=== PATIENT | male | born 1965 | race Caucasian/White ===

== ENCOUNTER 2017-03-09 11:01 | Emergency (ER) | payer OTHER ==
[~2017-03-09] VITALS: Ht 165.1 cm; Wt 68.0 kg
[~2017-03-09 11:01] MED LIST: 'PARAFON FORTE500 M1 PO; CYCLOBENZAPRINE5 MG PO; HYDROCODONE BIT1 T11 PO; KEFLEX500 MG PO; MOTRIN800 MG PO; NAPROSYN500 MG PO; NKHM PO; PERCOCET 325 MG1 TA2 PO; TRAMADOL HCL50 MG PO; [UNRECOGNIZED DRUG - REMARK]
[2017-03-09 11:42] VITALS: BP 151/100
[2017-03-09 12:01] LABS: BASO # 0.1 10*3/uL (0.0-0.1); BASO % 0.7 % (0.0-1.0); EOS # 0.2 10*3/uL (0.0-0.4); EOS % 2.3 % (1.0-4.0); HEMATOCRIT 44.9 % (42.0-52.0); HEMOGLOBIN 15.7 g/dl (14.0-18.0); IG # 0.1 10*3/uL (0.0-0.1); LYMPH # 1.8 10*3/uL (1.3-4.4); LYMPH % 19.9 % (27.0-41.0); MEAN CELL VOLUME 86.5 fl (80.0-94.0); MEAN CORPUSCULAR HGB 30.3 pg (27.0-31.0); MEAN PLATELET VOLUME 10.3 fl (9.6-12.3); MONO # 0.7 10*3/uL (0.1-1.0); MONO % 7.4 % (3.0-9.0); NEUT # 6.1 10*3/uL (2.3-7.9); NEUT % 69.1 % (47.0-73.0); PLATELET COUNT AUTOMATED 246 10*3/uL (130-400); RED BLOOD COUNT 5.19 10*6/uL (4.50-5.90); RED CELL DISTRI WIDTH 12.6 % (0-14.5); WHITE BLOOD COUNT 8.8 10*3/uL (4.8-10.8)
[2017-03-09 12:15] LABS: ALBUMIN 3.9 gm/dl (3.1-4.5); ALKALINE PHOSPHATASE 83 U/L (45-117); BILIRUBIN, TOTAL 0.4 mg/dl (0.2-1.0); BUN 14 mg/dl (7-24); CARBON DIOXIDE 28 mmol/L (21-32); CHLORIDE 104 mmol/L (98-107); EST GLOM FILT AFRICAN AMERICAN > 60 ml/min; GLUCOSE 98 mg/dL (65-99); POTASSIUM 4.6 mmol/L (3.5-5.1); SGOT/AST 17 IU/L (3-35); SGPT/ALT 30 U/L (12-78); SODIUM 142 mmol/L (136-145); TOTAL PROTEIN 7.9 gm/dL (6.4-8.2)
[2017-03-09 12:32] LABS: BILIRUBIN NEGATIVE (NEGATIVE); BLOOD NEGATIVE (NEGATIVE); CLARITY CLEAR (CLEAR); COLOR YELLOW (YELLOW); GLUCOSE NEGATIVE (NEGATIVE); KETONE NEGATIVE (NEGATIVE); LEUKO ESTERASE NEGATIVE (NEGATIVE); NITRITE NEGATIVE (NEGATIVE); PROTEIN NEGATIVE (NEGATIVE); UROBILINOGEN 0.2 E.U./dl (0.2-1.0)
[2017-03-09 12:43] LABS: MUCOUS TRACE; URINE REFLEX COMMENT NO (NO)
[2017-03-09] MEDS ORDERED: PEPCID20 MG PO (12:56)
== END 2017-03-09 13:11 | disposition home or self-care (01) ==
LOC: ED 11:01
PROVIDERS: Emergency Medicine
DX: K62.5 Hemorrhage of anus and rectum (principal); Z88.6 Allergy status to analgesic agent

== ENCOUNTER → 2017-03-15 | Outpatient (CLI) | payer OTHER ==
[~2017-03-15] MED LIST changes: +PEPCID20 MG PO
== END | disposition home or self-care (01) ==
LOC: RESCLI 02:36
DX: I10 Essential (primary) hypertension (principal); K62.5 Hemorrhage of anus and rectum; E55.9 Vitamin D deficiency, unspecified; F41.8 Other specified anxiety disorders; K21.9 Gastro-esophageal reflux disease without esophagitis; R10.13 Epigastric pain; F12.10 Cannabis abuse, uncomplicated

== ENCOUNTER 2017-04-06 11:07 | Emergency (ER) | payer OTHER ==
[~2017-04-06] VITALS: Ht 165.1 cm; Wt 68.0 kg
[2017-04-06 11:22] VITALS: BP 127/90
[2017-04-06] MEDS ORDERED: PEPCID20 MG PO (11:43)
[2017-04-06] MEDS ORDERED: PROTONIX40 MG PO (11:43)
== END 2017-04-06 12:23 | disposition home or self-care (01) ==
LOC: ED 11:07
DX: K21.9 Gastro-esophageal reflux disease without esophagitis (principal); K62.5 Hemorrhage of anus and rectum; R51 Headache; Z88.6 Allergy status to analgesic agent

== ENCOUNTER 2017-04-06 15:13 | Emergency (ER) | payer OTHER ==
[~2017-04-06] VITALS: Ht 165.1 cm; Wt 68.0 kg
--- NOTE | ~2017-04-06 | EKG ---
[place], [place] ELECTROCARDIOGRAM REPORT NAME: LYNNE ALVAREZ UNIT #: [id number] ROOM: DOCTOR: JEREMIAS MACIAS MD BIRTHDATE: [birth year] DOS: 04/06/2017 TIME: 1552 hours FINDINGS: 1. Normal sinus rhythm at 74 beats per minute. 2. The tracing is normal. 3. No previous tracing is available for comparison. JEREMIAS MACIAS MD CM:EKGRPT:ELECTROCARDIOGRAM REPORT [id number] JEREMIAS MACIAS MD
[~2017-04-06 15:13] MED LIST changes: +PROTONIX40 MG PO
[2017-04-06 16:07] LABS: BASO # 0.1 10*3/uL (0.0-0.1); BASO % 0.5 % (0.0-1.0); EOS # 0.1 10*3/uL (0.0-0.4); EOS % 0.9 % (1.0-4.0); HEMATOCRIT 40.3 % (42.0-52.0); HEMOGLOBIN 14.2 g/dl (14.0-18.0); LYMPH # 1.5 10*3/uL (1.3-4.4); LYMPH % 16.4 % (27.0-41.0); MEAN CELL VOLUME 84.8 fl (80.0-94.0); MEAN CORPUSCULAR HGB 29.9 pg (27.0-31.0); MEAN CORPUSCULAR HGB CONC 35.2 g/dl (33.0-37.0); MEAN PLATELET VOLUME 10.1 fl (9.6-12.3); MONO # 0.5 10*3/uL (0.1-1.0); MONO % 5.4 % (3.0-9.0); NEUT # 7.2 10*3/uL (2.3-7.9); NEUT % 76.5 % (47.0-73.0); PLATELET COUNT AUTOMATED 278 10*3/uL (130-400); RED BLOOD COUNT 4.75 10*6/uL (4.50-5.90); RED CELL DISTRI WIDTH 12.2 % (0-14.5); WHITE BLOOD COUNT 9.4 10*3/uL (4.8-10.8)
[2017-04-06 16:15] LABS: PROTHROMBIN TIME 10.5 SECONDS (9.0-12.4)
[2017-04-06 16:25] LABS: ALBUMIN 3.8 gm/dl (3.1-4.5); ALKALINE PHOSPHATASE 81 U/L (45-117); BILIRUBIN, TOTAL 0.6 mg/dl (0.2-1.0); BUN 9 mg/dl (7-24); CARBON DIOXIDE 26 mmol/L (21-32); CHLORIDE 105 mmol/L (98-107); CKMB 1.3 ng/ml (0.5-3.6); CPK 81 U/L (39-308); EST GLOM FILT AFRICAN AMERICAN > 60 ml/min; GLUCOSE 128 mg/dL (65-99); MAGNESIUM 1.9 mg/dL (1.5-2.1); POTASSIUM 3.9 mmol/L (3.5-5.1); SGOT/AST 17 IU/L (3-35); SGPT/ALT 26 U/L (12-78); SODIUM 140 mmol/L (136-145); TOTAL PROTEIN 7.5 gm/dL (6.4-8.2)
[2017-04-06 16:27] LABS: C-REACTIVE PROTEIN < 0.29 MG/DL (0-0.3); TROPONIN I < 0.015 ng/ml (<0.045)
[2017-04-06 18:04] LABS: LA>2 REFLEX 2 HR DRAW NOW
[2017-04-06 18:58] LABS: BILIRUBIN NEGATIVE (NEGATIVE); BLOOD NEGATIVE (NEGATIVE); CLARITY SL CLOUDY (CLEAR); COLOR YELLOW (YELLOW); GLUCOSE NEGATIVE (NEGATIVE); KETONE NEGATIVE (NEGATIVE); LEUKO ESTERASE NEGATIVE (NEGATIVE); NITRITE NEGATIVE (NEGATIVE); PROTEIN TRACE (NEGATIVE); SPECIFIC GRAVITY 1.025 (1.005-1.030); UROBILINOGEN 0.2 E.U./dl (0.2-1.0)
[2017-04-06 19:04] LABS: BACTERIA 1+; EPITHELIAL CELLS 0-2; RBC 0-2 rbc/hpf (0-2); URINE REFLEX COMMENT NO (NO)
[2017-04-06 19:05] LABS: URINE AMPHETAMINES < 1000 (1000ng/ml); URINE BARBITURATES > 200 (200ng/ml); URINE COCAINE < 300 (300ng/ml)
[2017-04-06 19:11] VITALS: BP 136/82
== END 2017-04-06 23:46 | disposition home health service (06) ==
LOC: ED 15:13
PROVIDERS: Emergency Medicine
DX: F32.9 Major depressive disorder, single episode, unspecified (principal); R45.851 Suicidal ideations; F41.9 Anxiety disorder, unspecified; K21.9 Gastro-esophageal reflux disease without esophagitis; Z88.6 Allergy status to analgesic agent

== ENCOUNTER 2017-04-13 19:26 | Emergency (ER) | payer OTHER ==
[~2017-04-13] VITALS: Ht 160 cm; Wt 68.0 kg
[2017-04-13 19:33] VITALS: BP 126/74
== END 2017-04-13 20:31 | disposition home or self-care (01) ==
LOC: ED 19:26
DX: Z00.00 Encounter for general adult medical examination without abnormal findings (principal); K21.9 Gastro-esophageal reflux disease without esophagitis; Z88.6 Allergy status to analgesic agent; F41.9 Anxiety disorder, unspecified; F32.9 Major depressive disorder, single episode, unspecified

== ENCOUNTER 2017-12-19 18:34 | Inpatient (IN) | payer OTHER ==
[~2017-12-19] VITALS: Ht 160 cm; Wt 70.9 kg
--- NOTE | ~2017-12-19 | CON ---
[place], [place] REPORT OF CONSULTATION NAME: LYNNE ALVAREZ UNIT #: [id number] ROOM: 503 DOCTOR: NATASHA WARREN ED.D) BIRTHDATE: [birth year] DOS: 12/20/2017 HISTORY OF PRESENT ILLNESS: The patient is a 52-year-old male referred by the hospitalist for depression. At the present time, he is on the 5th floor at [facility]. He is single and has no children. His parents are both and he has 4 sisters and 1 brother. One sister is . He is currently applying for disability due to multiple head trauma and has social security hearing on 02/08/2018. PAST MEDICAL HISTORY: Presently, he has no family physician, but his medical history is pertinent for depression, anxiety, multiple concussions, hypertension, rectal bleeding, vitamin D deficiency and a history of suicidal ideation. MEDICATIONS: Include Pepcid, Protonix, Lovenox, Zofran and Restoril. SOCIAL HISTORY: He does not drink any alcoholic beverages or use tobacco related products. MENTAL STATUS EXAMINATION: This patient was awake, alert and oriented in all three spheres. He adamantly denies any suicidal ideation or plan. He states he does get depressed sometimes, but never thinks about hurting himself. He states he has a fairly good social support system with his friends. He has followed with Dr. Mcdermott in the past, but does not want any medications due to his multiple head traumas In my opinion, this patient would not benefit from any type of medication since he refuses to take any medication. I did give him my card and encouraged him to follow up with me or another mental health provider here in the area if he felt the need. He states he does not really think he needs counseling. DIAGNOSIS: Pervasive depressive disorder. RECOMMENDATIONS: 1. In my opinion, if this patient does report increasing depression, he should seek counseling on an outpatient basis. 2. The patient refuses medications. Thank you very much for this consult. [place], [place] REPORT OF CONSULTATION NAME: LYNNE ALVAREZ UNIT #: [id number] ROOM: 503 DOCTOR: NATASHA WARREN ED.D) BIRTHDATE: [birth year] NATASHA WARREN ED.D CM:CONSTR:REPORT OF CONSULTATION 1243 12/20/17 1343 interface
--- NOTE | ~2017-12-19 | O ---
[place], [place] OPERATIVE NOTE [id number] UNIT #: [id number] ROOM: 503 DOCTOR: JOYCELYN ALVES MD BIRTHDATE: [birth year] DOS: 12/20/2017 HISTORY OF PRESENT ILLNESS: A 52-year-old patient who presented with aggressive nausea, vomiting. Today nausea and vomiting has subsided on PPI and antiemetics; however, yesterday he has been vomiting relentlessly to a point he says he passed out nearly. PROCEDURE: He is a consumer of a pot of coffee at least per day. PAST MEDICAL HISTORY: Associated with depression, anxiety, gastroesophageal reflux, hypertension, old history of rectal bleeding. PAST SURGICAL HISTORY: Unremarkable. SOCIAL HISTORY: Cannabis user, nonalcohol, non-nicotine consumer. FAMILY HISTORY: Noncontributory. ALLERGIES: No known medication. MEDICATIONS: At home includes famotidine 20 mg b.i.d. and on no PPI. PROCEDURE: Today's procedure part of investigation is panendoscopy plus biopsy plus photographic series. PREMEDICATIONS: Versed and propofol. SCOPE: Olympus forward-viewing gastroscope Q10 video. REPORT: After putting the patient in left lateral position and application of lubricant to the scope, the scope was introduced. Thereafter, under direct visualization, advanced through the length of esophagus without difficulty. Lower third of the esophagus is occupied with linear ulcerations that are wide about 0.[address]ends all the way to esophagogastric junction. Gastric pouch was entered. Bile reflux gastritis was noticed. Duodenum was entered. Multiple small ulcerations in addition to duodenitis was noticed. Scope was after photographic series, the withdrawn to the antrum. Antral biopsy obtained and the patient extubated to the distal esophagus again confirmation of a 2 cm hiatal hernia was undertaken, photographed. The patient extubated, tolerated procedure well. IMPRESSION: Distal esophageal multiple ulcerations secondary to reflux, hiatal hernia, gastritis, duodenitis, multiple small antral ulcer, multiple small duodenal ulcers. PLAN AND DISCUSSION: Protonix 40 mg daily, Pepcid alone is not going to suffice management of this gentleman. Gaviscon Extra Strength 1 at bedtime 15 minutes before going to bed either chew or sucking on the tablet. This gentleman requires antireflux measures with elevation of the head of the bed 6 inch all time, abstaining from drinking a pot of coffee per day, which is going to [place], [place] OPERATIVE NOTE NAME: LYNNE ALVAREZ UNIT #: [id number] ROOM: [facility] DOCTOR: LONG RAMIREZ,JOYCELYN BIRTHDATE: [birth year] further stimulation of his acidic environment of the stomach He needs to abstain eating 4-5 hours before retiring, this includes solid food. He perhaps would benefit from a prior prokinetic. We are going to try to give him 5 mg of metoclopramide here 1 hour a.c. dinner to see if he can tolerate. We are going to label that with looking for extrapyramidal dyskinetic affect and follow up as outpatient. If H. pylori results come back positive, we are going to render therapy. JOYCELYN ALVES MD CM:OPRECORD:OPERATIVE NOTE 56 34 JOYCELYN ALVES MD 12/20/171934 interface
[2017-12-19 18:39] VITALS: BP 162/109
[2017-12-19 19:35] VITALS: BP 153/84
[2017-12-19 19:38] LABS: BASO # 0.1 10*3/uL (0.0-0.1); BASO % 0.5 % (0.0-1.0); EOS # 0.2 10*3/uL (0.0-0.4); EOS % 1.9 % (1.0-4.0); HEMATOCRIT 44.1 % (42.0-52.0); HEMOGLOBIN 15.4 g/dl (14.0-18.0); LYMPH # 1.8 10*3/uL (1.3-4.4); LYMPH % 18.1 % (27.0-41.0); MEAN CELL VOLUME 86.3 fl (80.0-94.0); MEAN CORPUSCULAR HGB 30.1 pg (27.0-31.0); MEAN CORPUSCULAR HGB CONC 34.9 g/dl (33.0-37.0); MEAN PLATELET VOLUME 10.6 fl (9.6-12.3); MONO # 0.9 10*3/uL (0.1-1.0); MONO % 8.6 % (3.0-9.0); NEUT % 70.6 % (47.0-73.0); PLATELET COUNT AUTOMATED 293 10*3/uL (130-400); RED BLOOD COUNT 5.11 10*6/uL (4.50-5.90); RED CELL DISTRI WIDTH 12.5 % (0-14.5); WHITE BLOOD COUNT 9.9 10*3/uL (4.8-10.8)
[2017-12-19 19:52] LABS: ACT PARTIAL THROMBO TIME 26.3 SECONDS (20.8-31.5); INTERNATIONAL NORM RATIO 0.9 (2.0-3.5)
[2017-12-19 19:54] LABS: ALKALINE PHOSPHATASE 97 U/L (45-117); BUN 14 mg/dl (7-24); CHLORIDE 103 mmol/L (98-107); CREATININE 0.95 mg/dL (0.70-1.30); LIPASE 231 U/L (73-393); POTASSIUM 4.4 mmol/L (3.5-5.1); SGOT/AST 18 IU/L (3-35); SGPT/ALT 32 U/L (12-78); SODIUM 138 mmol/L (136-145); TOTAL PROTEIN 7.8 gm/dL (6.4-8.2)
[2017-12-19 19:58] LABS: TROPONIN I < 0.015 ng/ml (<0.045)
[2017-12-19 20:00] VITALS: BP 143/76
[2017-12-19 20:31] VITALS: BP 161/83
[2017-12-19 21:30] VITALS: BP 143/76
[2017-12-20] VITALS (8 sets, daily range): BP systolic 124–161; BP diastolic 80–94
[2017-12-20 00:11] LABS: BILIRUBIN NEGATIVE (NEGATIVE); BLOOD NEGATIVE (NEGATIVE); CLARITY CLEAR (CLEAR); COLOR YELLOW (YELLOW); GLUCOSE NEGATIVE (NEGATIVE); KETONE NEGATIVE (NEGATIVE); LEUKO ESTERASE NEGATIVE (NEGATIVE); NITRITE NEGATIVE (NEGATIVE); PH 5.5 (5.0-9.0); SPECIFIC GRAVITY <= 1.005 (1.005-1.030); UROBILINOGEN 0.2 E.U./dl (0.2-1.0)
[2017-12-20 00:21] LABS: WBC 0-2 wbc/hpf (0-5)
[2017-12-20 06:44] LABS: ALBUMIN 3.6 gm/dl (3.1-4.5); ALKALINE PHOSPHATASE 86 U/L (45-117); BUN 10 mg/dl (7-24); CHLORIDE 106 mmol/L (98-107); CHOLESTEROL 213 mg/dL (<200); HDL CHOLESTEROL 33 mg/dl (40-60); LDL CHOLESTEROL 158 mg/dL (9-159); PHOSPHOROUS 2.5 mg/dL (2.5-4.9); POTASSIUM 4.4 mmol/L (3.5-5.1); SGOT/AST 15 IU/L (3-35); SGPT/ALT 25 U/L (12-78); SODIUM 138 mmol/L (136-145); TOTAL PROTEIN 6.8 gm/dL (6.4-8.2); TRIGLYCERIDES 111 mg/dl (<150); VLDL CHOLESTEROL 22 mg/dL (6-40)
[2017-12-20 06:45] LABS: BASO # 0.1 10*3/uL (0.0-0.1); BASO % 0.6 % (0.0-1.0); EOS # 0.2 10*3/uL (0.0-0.4); EOS % 2.2 % (1.0-4.0); HEMATOCRIT 42.9 % (42.0-52.0); HEMOGLOBIN 14.6 g/dl (14.0-18.0); LYMPH # 1.7 10*3/uL (1.3-4.4); LYMPH % 19.6 % (27.0-41.0); MEAN CELL VOLUME 87.4 fl (80.0-94.0); MEAN CORPUSCULAR HGB 29.7 pg (27.0-31.0); MEAN PLATELET VOLUME 11.1 fl (9.6-12.3); MONO # 0.8 10*3/uL (0.1-1.0); NEUT # 6.1 10*3/uL (2.3-7.9); NEUT % 68.2 % (47.0-73.0); PLATELET COUNT AUTOMATED 268 10*3/uL (130-400); RED BLOOD COUNT 4.91 10*6/uL (4.50-5.90); RED CELL DISTRI WIDTH 12.7 % (0-14.5); WHITE BLOOD COUNT 8.9 10*3/uL (4.8-10.8)
[2017-12-20 07:09] LABS: ACT PARTIAL THROMBO TIME 27.8 SECONDS (20.8-31.5)
[2017-12-20 09:52] LABS: VITAMIN D, 25-HYDROXY 30.8 ng/mL (30-100)
[2017-12-21] VITALS: BP 106/72
[2017-12-21 08:00] VITALS: BP 132/86
[2017-12-21] MEDS ORDERED: GAVISCON ES TA1 EACH PO (12:58)
[2017-12-21] MEDS ORDERED: REGLAN5 MG PO (12:58)
[2017-12-21] MEDS ORDERED: PROTONIX40 MG PO (12:58)
== END 2017-12-21 13:50 | disposition home or self-care (01) | DRG 391 ==
LOC: ED 18:34 → EDHOLD 20:27 → 5E 20:27
PROVIDERS: Internal Medicine; Student in an Organized Health Care Education/Training Program
PROC: 0DB78ZX Excision of Stomach, Pylorus, Via Natural or Artificial Opening Endoscopic, Diagnostic (ICD-10-PCS; principal; 2017-12-20)
DX: K21.0 Gastro-esophageal reflux disease with esophagitis (principal); K22.11 Ulcer of esophagus with bleeding; K25.4 Chronic or unspecified gastric ulcer with hemorrhage; K29.71 Gastritis, unspecified, with bleeding; K29.81 Duodenitis with bleeding; K26.4 Chronic or unspecified duodenal ulcer with hemorrhage; F41.9 Anxiety disorder, unspecified; K52.9 Noninfective gastroenteritis and colitis, unspecified; R55 Syncope and collapse; K59.00 Constipation, unspecified; W19.XXXA Unspecified fall, initial encounter; H91.90 Unspecified hearing loss, unspecified ear; I10 Essential (primary) hypertension; F12.10 Cannabis abuse, uncomplicated; D72.810 Lymphocytopenia; R73.9 Hyperglycemia, unspecified; E55.9 Vitamin D deficiency, unspecified; E66.3 Overweight; F34.1 Dysthymic disorder; K44.9 Diaphragmatic hernia without obstruction or gangrene; Y93.89 Activity, other specified; Y92.89 Other specified places as the place of occurrence of the external cause; Y99.8 Other external cause status; Z82.49 Family history of ischemic heart disease and other diseases of the circulatory system; Z79.899 Other long term (current) drug therapy; Z68.27 Body mass index [BMI] 27.0-27.9, adult

== ENCOUNTER 2018-02-08 14:59 | Emergency (ER) | payer OTHER ==
[~2018-02-08] VITALS: Ht 160 cm; Wt 70.3 kg
[~2018-02-08 14:59] MED LIST changes: +GAVISCON ES TA1 EACH PO; +REGLAN5 MG PO
[2018-02-08 16:05] LABS: BASO # 0.1 10*3/uL (0.0-0.1); BASO % 0.7 % (0.0-1.0); EOS # 0.1 10*3/uL (0.0-0.4); EOS % 1.4 % (1.0-4.0); HEMATOCRIT 42.8 % (42.0-52.0); HEMOGLOBIN 14.9 g/dl (14.0-18.0); LYMPH # 1.1 10*3/uL (1.3-4.4); LYMPH % 14.9 % (27.0-41.0); MEAN CELL VOLUME 87.9 fl (80.0-94.0); MEAN CORPUSCULAR HGB 30.6 pg (27.0-31.0); MEAN CORPUSCULAR HGB CONC 34.8 g/dl (33.0-37.0); MEAN PLATELET VOLUME 10.5 fl (9.6-12.3); MONO # 0.6 10*3/uL (0.1-1.0); MONO % 7.7 % (3.0-9.0); NEUT # 5.7 10*3/uL (2.3-7.9); NEUT % 75.2 % (47.0-73.0); PLATELET COUNT AUTOMATED 253 10*3/uL (130-400); RED BLOOD COUNT 4.87 10*6/uL (4.50-5.90); RED CELL DISTRI WIDTH 12.4 % (0-14.5); WHITE BLOOD COUNT 7.6 10*3/uL (4.8-10.8)
[2018-02-08 16:15] VITALS: BP 159/100
[2018-02-08 16:15] LABS: ACT PARTIAL THROMBO TIME 27.2 SECONDS (20.8-31.5); INTERNATIONAL NORM RATIO 0.9 (2.0-3.5)
[2018-02-08 16:18] LABS: ALBUMIN 4.1 gm/dl (3.1-4.5); ALKALINE PHOSPHATASE 88 U/L (45-117); BUN 11 mg/dl (7-24); CHLORIDE 108 mmol/L (98-107); CREATININE 1.12 mg/dL (0.70-1.30); POTASSIUM 4.3 mmol/L (3.5-5.1); SGOT/AST 13 IU/L (3-35); SGPT/ALT 22 U/L (12-78); SODIUM 142 mmol/L (136-145); TOTAL PROTEIN 7.7 gm/dL (6.4-8.2)
== END 2018-02-08 16:20 | disposition short-term general hospital (02) ==
LOC: ED 14:59
PROVIDERS: Emergency Medicine
DX: I63.9 Cerebral infarction, unspecified (principal); K21.9 Gastro-esophageal reflux disease without esophagitis; I10 Essential (primary) hypertension; E66.3 Overweight; F12.10 Cannabis abuse, uncomplicated; Z68.29 Body mass index [BMI] 29.0-29.9, adult; Z79.899 Other long term (current) drug therapy

== ENCOUNTER 2018-06-27 11:33 | Emergency (ER) | payer OTHER ==
[~2018-06-27] VITALS: Ht 160 cm; Wt 68.0 kg
[2018-06-27 11:35] VITALS: BP 169/99
== END 2018-06-27 12:00 | disposition home or self-care (01) ==
LOC: ED 11:33
DX: M79.675 Pain in left toe(s) (principal); K21.9 Gastro-esophageal reflux disease without esophagitis; I10 Essential (primary) hypertension; E66.3 Overweight; F17.200 Nicotine dependence, unspecified, uncomplicated; Z68.25 Body mass index [BMI] 25.0-25.9, adult

== ENCOUNTER 2018-07-03 10:37 | Emergency (ER) | payer OTHER ==
[~2018-07-03] VITALS: Ht 160 cm; Wt 69.9 kg
--- NOTE | ~2018-07-03 | EKG ---
[place], [place] ELECTROCARDIOGRAM REPORT NAME: LYNNE ALVAREZ UNIT #: [id number] ROOM: DOCTOR: EPIPHANY DRAFT REPORT BIRTHDATE: [birth year] [facility] Test Date: 2018-07-03 Test Time: 10:39:21 Pat Name: LYNNE ALVAREZ Department: Room: Gender: Home Health Lpn: : 1965 Requested By: GUSTAVO FONG Order Number: [id number] Reading MD: Rj Maki MD Measurements Intervals [place] Rate: 64 P: 68 UT: 147 QRS: 34 QRSD: 103 T: 36 QT: 404 QTc: 417 Interpretive Statements Sinus rhythm Probable left atrial enlargement No previous ECG available for comparison Electronically Signed On 07-03-2018 20:01:15 PDT by Rj Maki MD CM:EKGRPT:ELECTROCARDIOGRAM REPORT 1039 00 GUSTAVO SIMENTAL DRAFT REPORT GUSTAVO FONG M.D.
[2018-07-03 10:48] LABS: BASO # 0.1 10*3/uL (0.0-0.1); EOS # 0.1 10*3/uL (0.0-0.4); EOS % 1.7 % (1.0-4.0); HEMATOCRIT 44.1 % (42.0-52.0); HEMOGLOBIN 15.4 g/dl (14.0-18.0); LYMPH # 1.7 10*3/uL (1.3-4.4); LYMPH % 20.6 % (27.0-41.0); MEAN CELL VOLUME 87.3 fl (80.0-94.0); MEAN CORPUSCULAR HGB 30.5 pg (27.0-31.0); MEAN CORPUSCULAR HGB CONC 34.9 g/dl (33.0-37.0); MEAN PLATELET VOLUME 10.2 fl (9.6-12.3); MONO # 0.7 10*3/uL (0.1-1.0); MONO % 8.3 % (3.0-9.0); NEUT # 5.5 10*3/uL (2.3-7.9); PLATELET COUNT AUTOMATED 290 10*3/uL (130-400); RED BLOOD COUNT 5.05 10*6/uL (4.50-5.90); RED CELL DISTRI WIDTH 12.4 % (0-14.5)
[2018-07-03 10:58] LABS: INTERNATIONAL NORM RATIO 0.9 (2.0-3.5)
[2018-07-03 11:04] LABS: ALBUMIN 3.9 gm/dl (3.1-4.5); ALKALINE PHOSPHATASE 83 U/L (45-117); BUN 14 mg/dl (7-24); CHLORIDE 110 mmol/L (98-107); CREATININE 0.99 mg/dL (0.70-1.30); POTASSIUM 4.3 mmol/L (3.5-5.1); SGOT/AST 13 IU/L (3-35); SGPT/ALT 30 U/L (12-78); SODIUM 141 mmol/L (136-145); TOTAL PROTEIN 7.8 gm/dL (6.4-8.2); TROPONIN I < 0.015 ng/ml (<0.045)
[2018-07-03 12:29] VITALS: BP 138/89
== END 2018-07-03 12:28 | disposition short-term general hospital (02) ==
LOC: ED 10:37
PROVIDERS: Emergency Medicine
DX: I63.9 Cerebral infarction, unspecified (principal); K21.9 Gastro-esophageal reflux disease without esophagitis; I10 Essential (primary) hypertension; E66.3 Overweight; Z68.25 Body mass index [BMI] 25.0-25.9, adult; Z79.899 Other long term (current) drug therapy; Z79.82 Long term (current) use of aspirin

== ENCOUNTER 2019-02-27 12:54 | Emergency (ER) | payer OTHER ==
[~2019-02-27] VITALS: Ht 160 cm; Wt 72.6 kg
[~2019-02-27 12:54] MED LIST changes: +ASPIRIN ADULT L81 M1 PO; +CIPRO500 MG PO; +LISINOPRIL10 M1 PO; +SERTRALINE HYDR50 MG PO
[2019-02-27 13:43] LABS: BILIRUBIN NEGATIVE (NEGATIVE); BLOOD NEGATIVE (NEGATIVE); CLARITY CLEAR (CLEAR); COLOR YELLOW (YELLOW); GLUCOSE NEGATIVE (NEGATIVE); KETONE NEGATIVE (NEGATIVE); LEUKO ESTERASE NEGATIVE (NEGATIVE); NITRITE NEGATIVE (NEGATIVE); PH 6.5 (5.0-9.0); UROBILINOGEN 0.2 E.U./dl (0.2-1.0)
[2019-02-27 13:52] LABS: BASO # 0.1 10*3/uL (0.0-0.1); BASO % 0.8 % (0.0-1.0); EOS # 0.1 10*3/uL (0.0-0.4); EOS % 1.2 % (1.0-4.0); HEMATOCRIT 40.9 % (42.0-52.0); HEMOGLOBIN 13.8 g/dl (14.0-18.0); LYMPH # 1.3 10*3/uL (1.3-4.4); LYMPH % 19.2 % (27.0-41.0); MEAN CELL VOLUME 88.3 fl (80.0-94.0); MEAN CORPUSCULAR HGB 29.8 pg (27.0-31.0); MEAN CORPUSCULAR HGB CONC 33.7 g/dl (33.0-37.0); MEAN PLATELET VOLUME 10.7 fl (9.6-12.3); MONO # 0.6 10*3/uL (0.1-1.0); MONO % 8.8 % (3.0-9.0); NEUT # 4.5 10*3/uL (2.3-7.9); NEUT % 69.7 % (47.0-73.0); PLATELET COUNT AUTOMATED 243 10*3/uL (130-400); RED BLOOD COUNT 4.63 10*6/uL (4.50-5.90); RED CELL DISTRI WIDTH 12.6 % (0-14.5); WHITE BLOOD COUNT 6.5 10*3/uL (4.8-10.8)
[2019-02-27 13:55] LABS: URINE AMPHETAMINES < 1000 (1000ng/ml); URINE BARBITURATES < 200 (200ng/ml); URINE BENZODIAZEPINES < 200 (200ng/ml); URINE CANNABINOIDS (THC) > 50 (50ng/ml); URINE COCAINE < 300 (300ng/ml); URINE METHADONE < 300 (300ng/ml); URINE OPIATES < 300 (300ng/ml)
[2019-02-27 13:58] LABS: BACTERIA TRACE; MUCOUS 1+; WBC 0-2 wbc/hpf (0-5)
[2019-02-27 13:59] LABS: URINE PHENCYCLIDINE < 25 (25ng/ml)
[2019-02-27 14:07] LABS: ALBUMIN 3.6 gm/dl (3.1-4.5); ALKALINE PHOSPHATASE 85 U/L (45-117); BUN 11 mg/dl (7-24); CHLORIDE 108 mmol/L (98-107); CREATININE 1.01 mg/dL (0.70-1.30); POTASSIUM 3.9 mmol/L (3.5-5.1); SGOT/AST 12 IU/L (3-35); SGPT/ALT 24 U/L (12-78); SODIUM 142 mmol/L (136-145)
[2019-02-27 14:09] LABS: ETHYL ALCOHOL < 3.0 mg/dl (<3)
== END 2019-02-27 17:38 | disposition home or self-care (01) ==
LOC: ED 12:54
PROVIDERS: Emergency Medicine
DX: F31.9 Bipolar disorder, unspecified (principal); K21.9 Gastro-esophageal reflux disease without esophagitis; I10 Essential (primary) hypertension; F12.10 Cannabis abuse, uncomplicated; Z79.82 Long term (current) use of aspirin; Z79.899 Other long term (current) drug therapy

== ENCOUNTER 2019-03-23 15:17 | Emergency (ER) | payer OTHER ==
[~2019-03-23] VITALS: Ht 160 cm; Wt 72.6 kg
[2019-03-23 15:38] LABS: BASO # 0.1 10*3/uL (0.0-0.1); BASO % 0.9 % (0.0-1.0); EOS # 0.2 10*3/uL (0.0-0.4); EOS % 2.1 % (1.0-4.0); HEMATOCRIT 41.1 % (42.0-52.0); HEMOGLOBIN 13.9 g/dl (14.0-18.0); LYMPH # 1.7 10*3/uL (1.3-4.4); LYMPH % 20.1 % (27.0-41.0); MEAN CELL VOLUME 89.3 fl (80.0-94.0); MEAN CORPUSCULAR HGB 30.2 pg (27.0-31.0); MEAN CORPUSCULAR HGB CONC 33.8 g/dl (33.0-37.0); MEAN PLATELET VOLUME 10.7 fl (9.6-12.3); MONO # 0.6 10*3/uL (0.1-1.0); MONO % 7.3 % (3.0-9.0); NEUT % 69.3 % (47.0-73.0); PLATELET COUNT AUTOMATED 251 10*3/uL (130-400); RED CELL DISTRI WIDTH 12.8 % (0-14.5); WHITE BLOOD COUNT 8.7 10*3/uL (4.8-10.8)
[2019-03-23 16:12] LABS: ALBUMIN 3.7 gm/dl (3.1-4.5); ALKALINE PHOSPHATASE 82 U/L (45-117); BUN 7 mg/dl (7-24); CHLORIDE 110 mmol/L (98-107); CREATININE 0.96 mg/dL (0.70-1.30); POTASSIUM 4.2 mmol/L (3.5-5.1); SGOT/AST 16 IU/L (3-35); SGPT/ALT 26 U/L (12-78); SODIUM 144 mmol/L (136-145); TOTAL PROTEIN 7.1 gm/dL (6.4-8.2)
[2019-03-23 16:18] LABS: ETHYL ALCOHOL < 3.0 mg/dl (<3)
[2019-03-23 17:39] LABS: URINE AMPHETAMINES < 1000 (1000ng/ml); URINE BARBITURATES < 200 (200ng/ml); URINE BENZODIAZEPINES < 200 (200ng/ml); URINE CANNABINOIDS (THC) > 50 (50ng/ml); URINE COCAINE < 300 (300ng/ml); URINE METHADONE < 300 (300ng/ml); URINE OPIATES < 300 (300ng/ml)
[2019-03-23 17:58] LABS: URINE PHENCYCLIDINE < 25 (25ng/ml)
[2019-03-23 22:31] VITALS: BP 133/65
== END 2019-03-23 22:41 | disposition home health service (06) ==
LOC: ED 15:17
PROVIDERS: Emergency Medicine
DX: F31.9 Bipolar disorder, unspecified (principal); F41.9 Anxiety disorder, unspecified; K21.9 Gastro-esophageal reflux disease without esophagitis; I10 Essential (primary) hypertension; F12.10 Cannabis abuse, uncomplicated; Z79.899 Other long term (current) drug therapy; Z79.82 Long term (current) use of aspirin

== ENCOUNTER 2019-05-25 17:35 | Emergency (ER) | payer OTHER ==
[~2019-05-25] VITALS: Ht 160 cm; Wt 72.6 kg
[2019-05-25 17:36] VITALS: BP 138/86
[2019-05-25] MEDS ORDERED: MEDROL DOSEPAK4 MG PO (18:22)
== END 2019-05-25 18:28 | disposition home or self-care (01) ==
LOC: ED 17:35
DX: T63.441A Toxic effect of venom of bees, accidental (unintentional), initial encounter (principal); F12.10 Cannabis abuse, uncomplicated; Z79.899 Other long term (current) drug therapy; Z79.82 Long term (current) use of aspirin; Y92.89 Other specified places as the place of occurrence of the external cause

== ENCOUNTER 2019-05-28 18:34 | Inpatient (IN) | payer OTHER ==
[~2019-05-28] VITALS: Ht 160 cm; Wt 68.5 kg
[~2019-05-28 18:34] MED LIST changes: +MEDROL DOSEPAK4 MG PO
[2019-05-28 18:36] VITALS: BP 148/92
[2019-05-28 19:01] LABS: BASO # 0.1 10*3/uL (0.0-0.1); BASO % 0.7 % (0.0-1.0); EOS # 0.1 10*3/uL (0.0-0.4); EOS % 1.2 % (1.0-4.0); HEMATOCRIT 40.1 % (42.0-52.0); LYMPH # 2.1 10*3/uL (1.3-4.4); LYMPH % 21.1 % (27.0-41.0); MEAN CELL VOLUME 89.1 fl (80.0-94.0); MEAN CORPUSCULAR HGB 31.1 pg (27.0-31.0); MEAN CORPUSCULAR HGB CONC 34.9 g/dl (33.0-37.0); MEAN PLATELET VOLUME 10.9 fl (9.6-12.3); MONO # 0.7 10*3/uL (0.1-1.0); MONO % 7.1 % (3.0-9.0); NEUT % 69.6 % (47.0-73.0); PLATELET COUNT AUTOMATED 246 10*3/uL (130-400); RED CELL DISTRI WIDTH 12.9 % (0-14.5); WHITE BLOOD COUNT 10.1 10*3/uL (4.8-10.8)
[2019-05-28 19:11] LABS: ACT PARTIAL THROMBO TIME 27.6 SECONDS (20.0-32.1); INTERNATIONAL NORM RATIO 0.9 (2.0-3.5)
[2019-05-28 19:20] LABS: ALBUMIN 3.9 gm/dl (3.1-4.5); ALKALINE PHOSPHATASE 73 U/L (45-117); BUN 13 mg/dl (7-24); CHLORIDE 105 mmol/L (98-107); CREATININE 0.82 mg/dL (0.70-1.30); POTASSIUM 3.8 mmol/L (3.5-5.1); SGOT/AST 13 IU/L (3-35); SGPT/ALT 21 U/L (12-78); SODIUM 140 mmol/L (136-145); TOTAL PROTEIN 7.2 gm/dL (6.4-8.2)
[2019-05-28 19:22] LABS: TROPONIN I < 0.015 ng/ml (<0.045)
[2019-05-28 20:56] VITALS: BP 168/100
--- NOTE | 2019-05-28 20:56 | NUR ---
A 54, admitted to 5E, under the services of KHANH Atkins DO with a diagnosis of CHEST PAIN. Chief complaint is CHEST PAIN. Patient arrived via bed from ER. Monitor applied. Initial assessment completed. Vital signs taken and recorded. KHANH ATKINS DO notified of admission to the unit. Orders received. See assessment for past medical history, medications and allergies. Patient and/or family oriented to unit. [address] visitation policy reviewed. Clothing/patient valuable form completed. DHRUV WALKER
--- NOTE | 2019-05-28 20:56 | NUR ---
AA 54, admitted to 5E, under the services of KHANH Atkins DO with a diagnosis of CHEST PAIN. Chief complaint is MID STERNAL CHEST PAIN AND SOB ABOUT 30 MINTUES PRIOR TO ER VISIT. PT. WAS JUST WALKING [place] AND THIS STARTED. HX 3 STROKE ONE AT AGE 15YRS AND 2 LAST YEAR A RESULT HAS RIGHT SIDE WEAKNESS WITH A LITTLE UNSTEADY GAIT. Patient arrived via stretcher from ER. Monitor applied. Initial assessment completed. Vital signs taken and recorded. KHANH ATKINS DO notified of admission to the unit. Orders received. See assessment for past medical history, medications and allergies. Patient and/or family oriented to unit. [facility] visitation policy reviewed. Clothing/patient valuable form completed. HAS SMALL SCAB LEFT PALM HEALING. RIRI VILLAFANA
--- NOTE | 2019-05-28 22:16 | NUR ---
OK TO GIVEN LISINOPRIL PER DR. SQUIRES EVEN THOUGH HR 40-60'S.
[2019-05-29] VITALS (9 sets, daily range): BP systolic 111–170; BP diastolic 73–98
--- NOTE | 2019-05-29 06:00 | NUR ---
UP TO BATHROOM STEADY GAIT. BATH GOTTEN. PT. HAS BEEN NPO. URINE SPECIMEN OBTAINED AND SENT TO LAB FOR UA REFLUX
[2019-05-29 06:39] LABS: BASO # 0.1 10*3/uL (0.0-0.1); BASO % 0.7 % (0.0-1.0); EOS # 0.2 10*3/uL (0.0-0.4); EOS % 2.4 % (1.0-4.0); HEMATOCRIT 41.4 % (42.0-52.0); HEMOGLOBIN 13.8 g/dl (14.0-18.0); LYMPH # 1.4 10*3/uL (1.3-4.4); LYMPH % 18.8 % (27.0-41.0); MEAN CELL VOLUME 90.6 fl (80.0-94.0); MEAN CORPUSCULAR HGB 30.2 pg (27.0-31.0); MEAN CORPUSCULAR HGB CONC 33.3 g/dl (33.0-37.0); MONO # 0.7 10*3/uL (0.1-1.0); MONO % 9.5 % (3.0-9.0); NEUT # 5.1 10*3/uL (2.3-7.9); NEUT % 68.1 % (47.0-73.0); PLATELET COUNT AUTOMATED 242 10*3/uL (130-400); RED BLOOD COUNT 4.57 10*6/uL (4.50-5.90); WHITE BLOOD COUNT 7.5 10*3/uL (4.8-10.8)
[2019-05-29 06:54] LABS: BILIRUBIN NEGATIVE (NEGATIVE); BLOOD NEGATIVE (NEGATIVE); CLARITY CLEAR (CLEAR); COLOR YELLOW (YELLOW); GLUCOSE NEGATIVE (NEGATIVE); KETONE NEGATIVE (NEGATIVE); LEUKO ESTERASE NEGATIVE (NEGATIVE); NITRITE NEGATIVE (NEGATIVE); UROBILINOGEN 0.2 E.U./dl (0.2-1.0)
[2019-05-29 07:08] LABS: WBC 0-2 wbc/hpf (0-5)
[2019-05-29 07:09] LABS: BACTERIA TRACE
[2019-05-29 07:12] LABS: ALBUMIN 3.5 gm/dl (3.1-4.5); ALKALINE PHOSPHATASE 72 U/L (45-117); BUN 12 mg/dl (7-24); CHLORIDE 110 mmol/L (98-107); CHOLESTEROL 189 mg/dL (<200); CREATININE 0.81 mg/dL (0.70-1.30); HDL CHOLESTEROL 32 mg/dl (40-60); LDL CHOLESTEROL 107 mg/dL (9-159); PHOSPHOROUS 2.7 mg/dL (2.5-4.9); POTASSIUM 3.8 mmol/L (3.5-5.1); SGOT/AST 11 IU/L (3-35); SGPT/ALT 19 U/L (12-78); SODIUM 143 mmol/L (136-145); TOTAL PROTEIN 6.6 gm/dL (6.4-8.2); TRIGLYCERIDES 251 mg/dl (<150); VLDL CHOLESTEROL 50 mg/dL (6-40)
--- NOTE | 2019-05-29 08:03 | NUR ---
NOTIFIED DR WATTS OF MANUAL BP 160/90,ORDER RECIEVED TO GIVE LISINOPRIL EARLY.
--- NOTE | 2019-05-29 09:11 | NUR ---
PT OFF FLOOR FOR STRESS TEST VIA WHEELCHAIR IN CARE OF TRANSPORT.MANUAL RECHECK OF BP TAKEN PRIOR TO LEAVING BP 150/90. PT ASYMPTOMATIC. DENIES CP/PRESSURE. DENIES ANXIETY AT THIS TIME.STABLE AT THIS TIME.
--- NOTE | 2019-05-29 09:25 | NUR ---
INFORMED CONSENT OBTAINED FOR AN EXERCISE STRESS TEST WITH DR. EUBANKS. RESTING EKG SINUS JIMI WITH A SUPINE HT RT OF 46, AND A BP OF 148/84. STANDING HT RT OF 47, WITH A BP OF 146/88 IN THE STANDING POSITION. PT COMPLETED 8:00 MINUTES OF A ELISEO PROTOCOL WITH COMPLETION OF 2 MINUTES INTO STAGE III AT 3.4 MPH AND 14% GRADE. REACHED A MAX HT RT OF 153 WHICH IS 92% OF PREDICTED MAX WITH A PEAK BP OF 162/74. TEST TERMINATED DUE TO FATIGUE. PT VOICED CHEST PRESSURE WAS CONSTANT AT THE TIME OF TESTING AT 6/10. DURING EXERCISE AND THE END OF STAGE II, HE VOICED PAIN WAS 7/10. DURING REVOVERY PATIENT VOICED PAIN RETURNED TO 6/10 PREVIOUS BEFORE EXERCISE. HAS A GOOD EXERCISE TOLERANCE. LAST RECOVERY HT RT OF 55, WITH A BP OF 124/82. TAKEN TO NUCLEAR IMAGING IN STABLE CONDITION.
--- NOTE | 2019-05-29 11:21 | NUR ---
NOTIFIED DR WATTS PT HAD RETURNED FROM STRESS TEST AND WAS REQUESTING TO EAT.
--- NOTE | 2019-05-29 12:09 | NUR ---
NOTIFIED DR WATTS OF PT C/O CHEST PAIN. PT BP 162/86 RIGHT ARM AND 149/89 IN LEFT ARM. C/O MIDSTERNAL CHEST PAIN THAT HURTS WHEN HE "BREATHES OUT". SB/CM AT THIS TIME. HR 57. NO SOB NOTED. STAT EKG ORDERED.
--- NOTE | 2019-05-29 12:19 | NUR ---
Hog Worker in to talk to patient. Patient states lives at HOME with ALONE. There are NO steps in the home. Physician: DADA PICKENS [facility]acy: [facility] Home health services: NONE Patient's level of ADLs: INDEPENDENT Patient has working utilities: YES DME: NONE Follow-up physician's appointment after d/c: WILL BE MADE BY HOSPITALIST NURSE DIRECTOR ON DISCHARGE Does patient want to access PORTAL?: NO Discharge plan . PT LIVES AT HOME ALONE AND IS INDEPENDENT IN HIS CARE. DENIES HE WILL HAVE NEEDS ON DISCHARGE. WILL CONTINUE TO FOLLOW. WILL HAVE A RIDE HOME PER PT. NITA MCALLISTER
--- NOTE | 2019-05-29 12:42 | NUR ---
NOTIFIED DR COKER PT STATES THAT NITRO SL NOT EFFECTIVE FOR CHEST PAIN. PT STATES HIS "HEAD HURTS" AND HE FEELS WEIRD BUT MED NOT EFFECTIVE. VITALS STABLE. SB/CM.SPO2 99% ON RA.PT ANXIOUS AT THIS TIME.PER DR WATTS HE WOULD "PUT SOMETHING IN FOR PAIN".
--- NOTE | 2019-05-29 12:53 | NUR ---
MANUALLY RECHECKED PRESSURE FOLLOWING ONE TIME DOSE OF SL 0.4 MG NITRO. BP 126/82 TO LEFT ARM. PT STATES HIS CHEST STILL HURTS.DR WATTS AWARE.SPO2 99% ON RA. PT SITTING UP IN BED EATING LUNCH AT THIS TIME. SB/EKG, TROPONIN 0.015. ADVISED PT THAT HE WAS CURRENTLY STILL SB/NSR/CM.ENCOURAGEMENT AND EMOTIONAL SUPPORT PROVIDED.
--- NOTE | 2019-05-29 13:49 | NUR ---
PHYSICAL THERAPY Initial eval done on 5E. Pt was able to gait 600' indep without issue. Did not tack picker for ongoing PT. Radha Silva, PT
--- NOTE | 2019-05-29 14:38 | NUR ---
DR SAUER AND TEAM ROUNDED AND SEEN PT.
--- NOTE | 2019-05-29 16:33 | NUR ---
RESTING IN BED WATCHING TV. VOICES NO NEEDS AT THIS TIME. RESPS EASY ON RA. PT HAD EARLY DINNER.VOICES NO OTHER C/O AT THIS TIME. CALL LIGHT IN REACH.
--- NOTE | 2019-05-29 20:57 | NUR ---
24 HR chart check completed.
[2019-05-30] VITALS: BP 134/84
--- NOTE | 2019-05-30 02:13 | NUR ---
Patient resting quietly with no c/o discomfort. Respirations easy and regular. Vital signs stable. No overt distress. NENA SOLOMON
--- NOTE | 2019-05-30 11:49 | NUR ---
PT CONTINUES TO DENY NEEDS ON DISCHARGE. WILL CONTINUE TO FOLLOW.
[2019-05-30 12:00] VITALS: BP 150/96
--- NOTE | 2019-05-30 13:47 | NUR ---
SURVEILLANCE DUAL RATE OFFICER went to speak with the patient. He stated he was in to much pain to talk at the moment and asked for SURVEILLANCE DUAL RATE OFFICER to return at a later time. RNKumar was present in the room. -AMELIA Gomes
--- NOTE | 2019-05-30 15:13 | NUR ---
SUPERVISOR INSTRUMENT MAINTENANCE spoke with the patient about him stating he is homeless and has not eaten in two days. The patient reported he has been staying with his friend Deny while he is in this area. Patient reports he normally stays on his friend [place] property in a 5 Wheel Camper. Patient stated he does have electric to his camper but no running water. He does have access to running water when his friend Philip is home. Patient stated he does have a food stamp card but admits he has run out of funds on it. Patient stated he is on a waiting list for the [facility] and was supposed to be next in line for placement. SUPERVISOR INSTRUMENT MAINTENANCE [facility] and left a message for return call. SUPERVISOR INSTRUMENT MAINTENANCE provided the patient with a resources on Homeless Shelters in the area and local food pantries. -AMELIA Gomes
[2019-05-30 16:00] VITALS: BP 150/96
--- NOTE | 2019-05-30 18:35 | NUR ---
Discharge instructions reviewed with patient/family. Patient receptive and verbalizes understanding. Follow-up care arranged. Written instructions given to patient/family. WAGNER SHELTON
--- NOTE | 2019-05-31 08:25 | NUR ---
Occupational therapy orders received and chart reviewed. Patient admitted for chest pain. Patient has discharged prior to OT evaluation. Thank you for the referral. Corine Scherer OTR/L
== END 2019-05-30 18:35 | disposition home or self-care (01) | DRG 145 ==
LOC: ED 18:34 → 5E 20:15 → EDHOLD 20:15 → 5E 20:38
PROVIDERS: Emergency Medicine; Family Medicine; ADMIT Internal Medicine
PROC: 4A02XM4 Measurement of Cardiac Total Activity, External Approach (ICD-10-PCS; principal; 2019-05-29)
PROC: 3E073KZ Introduction of Other Diagnostic Substance into Coronary Artery, Percutaneous Approach (ICD-10-PCS; 2019-05-29)
DX: R09.1 Pleurisy (principal); K59.1 Functional diarrhea; M79.602 Pain in left arm; R11.0 Nausea; R39.11 Hesitancy of micturition; R53.1 Weakness; I10 Essential (primary) hypertension; K21.9 Gastro-esophageal reflux disease without esophagitis; R10.13 Epigastric pain; F31.9 Bipolar disorder, unspecified; F41.9 Anxiety disorder, unspecified; E55.9 Vitamin D deficiency, unspecified; F12.10 Cannabis abuse, uncomplicated; R00.1 Bradycardia, unspecified; B35.1 Tinea unguium; Z86.73 Personal history of transient ischemic attack (TIA), and cerebral infarction without residual deficits; Z82.49 Family history of ischemic heart disease and other diseases of the circulatory system; Z87.442 Personal history of urinary calculi; Z79.899 Other long term (current) drug therapy; Z79.82 Long term (current) use of aspirin

== ENCOUNTER 2019-06-12 16:42 | Emergency (ER) | payer OTHER ==
[~2019-06-12] VITALS: Ht 160 cm; Wt 72.6 kg
--- NOTE | ~2019-06-12 | EKG ---
[place], [place] ELECTROCARDIOGRAM REPORT NAME: LYNNE ALVAREZ UNIT #: [id number] ROOM: DOCTOR: EPIPHANY DRAFT REPORT BIRTHDATE: [birth year] [facility] Test Date: 2019-06-12 Test Time: 18:13:03 Pat Name: LYNNE ALVAREZ Department: Room: Gender: Piece Work Checker: : 1965 Requested By: RADHA SHETH Order Number: [id number] Reading MD: Storm Cerda MD Measurements Intervals [place] Rate: 48 P: 55 MS: 159 QRS: 14 QRSD: 96 T: 23 QT: 446 QTc: 399 Interpretive Statements Sinus bradycardia Baseline wander in lead(s) V5,V6 Compared to ECG 05/29/2019 12:15:41 No significant changes Electronically Signed On 06-13-2019 13:38:59 PDT by Storm Cerda MD CM:EKGRPT:ELECTROCARDIOGRAM REPORT [id number] RADHA SIMENTAL DRAFT REPORT RADHA NEVAREZ
[2019-06-12 18:01] LABS: BASO # 0.1 10*3/uL (0.0-0.1); BASO % 0.7 % (0.0-1.0); EOS # 0.1 10*3/uL (0.0-0.4); EOS % 1.5 % (1.0-4.0); HEMATOCRIT 40.4 % (42.0-52.0); HEMOGLOBIN 13.8 g/dl (14.0-18.0); LYMPH # 1.7 10*3/uL (1.3-4.4); LYMPH % 19.6 % (27.0-41.0); MEAN CELL VOLUME 90.4 fl (80.0-94.0); MEAN CORPUSCULAR HGB 30.9 pg (27.0-31.0); MEAN CORPUSCULAR HGB CONC 34.2 g/dl (33.0-37.0); MEAN PLATELET VOLUME 10.8 fl (9.6-12.3); MONO # 0.6 10*3/uL (0.1-1.0); MONO % 6.8 % (3.0-9.0); NEUT # 6.3 10*3/uL (2.3-7.9); NEUT % 71.2 % (47.0-73.0); PLATELET COUNT AUTOMATED 256 10*3/uL (130-400); RED BLOOD COUNT 4.47 10*6/uL (4.50-5.90); WHITE BLOOD COUNT 8.9 10*3/uL (4.8-10.8)
[2019-06-12 18:11] LABS: ACT PARTIAL THROMBO TIME 28.6 SECONDS (20.0-32.1); INTERNATIONAL NORM RATIO 0.9 (2.0-3.5)
[2019-06-12 18:16] LABS: ALBUMIN 3.7 gm/dl (3.1-4.5); ALKALINE PHOSPHATASE 75 U/L (45-117); BUN 11 mg/dl (7-24); CHLORIDE 106 mmol/L (98-107); CREATININE 0.97 mg/dL (0.70-1.30); LIPASE 146 U/L (73-393); POTASSIUM 3.7 mmol/L (3.5-5.1); SGOT/AST 8 IU/L (3-35); SGPT/ALT 18 U/L (12-78); SODIUM 139 mmol/L (136-145); TOTAL PROTEIN 6.9 gm/dL (6.4-8.2)
[2019-06-12 18:17] LABS: TROPONIN I < 0.015 ng/ml (<0.045)
[2019-06-12 19:26] VITALS: BP 160/90
== END 2019-06-12 19:37 | disposition home or self-care (01) ==
LOC: ED 16:42
PROVIDERS: Physician Assistant
DX: R11.0 Nausea (principal); R10.84 Generalized abdominal pain; K21.9 Gastro-esophageal reflux disease without esophagitis; E11.9 Type 2 diabetes mellitus without complications; Z87.442 Personal history of urinary calculi; Z79.899 Other long term (current) drug therapy; Z79.82 Long term (current) use of aspirin

== ENCOUNTER 2019-06-17 17:10 | Emergency (ER) | payer OTHER ==
[~2019-06-17] VITALS: Ht 160 cm; Wt 72.6 kg
[2019-06-17 17:10] VITALS: BP 123/70
[2019-06-17 18:10] LABS: BASO # 0.1 10*3/uL (0.0-0.1); BASO % 0.6 % (0.0-1.0); EOS # 0.2 10*3/uL (0.0-0.4); EOS % 1.8 % (1.0-4.0); HEMATOCRIT 39.7 % (42.0-52.0); HEMOGLOBIN 13.4 g/dl (14.0-18.0); LYMPH # 1.9 10*3/uL (1.3-4.4); LYMPH % 22.8 % (27.0-41.0); MEAN CELL VOLUME 91.3 fl (80.0-94.0); MEAN CORPUSCULAR HGB 30.8 pg (27.0-31.0); MEAN CORPUSCULAR HGB CONC 33.8 g/dl (33.0-37.0); MEAN PLATELET VOLUME 10.8 fl (9.6-12.3); MONO # 0.8 10*3/uL (0.1-1.0); MONO % 9.4 % (3.0-9.0); NEUT # 5.3 10*3/uL (2.3-7.9); NEUT % 65.2 % (47.0-73.0); PLATELET COUNT AUTOMATED 268 10*3/uL (130-400); RED BLOOD COUNT 4.35 10*6/uL (4.50-5.90); WHITE BLOOD COUNT 8.2 10*3/uL (4.8-10.8)
[2019-06-17] MEDS ORDERED: KEFLEX500 M1 PO (18:18)
== END 2019-06-17 18:41 | disposition home or self-care (01) ==
LOC: ED 17:10
PROVIDERS: Internal Medicine
DX: S91.332A Puncture wound without foreign body, left foot, initial encounter (principal); F12.10 Cannabis abuse, uncomplicated; K21.9 Gastro-esophageal reflux disease without esophagitis; I10 Essential (primary) hypertension; Z86.73 Personal history of transient ischemic attack (TIA), and cerebral infarction without residual deficits; Z98.890 Other specified postprocedural states; Z87.442 Personal history of urinary calculi; Z79.82 Long term (current) use of aspirin; Z79.899 Other long term (current) drug therapy; W22.8XXA Striking against or struck by other objects, initial encounter; Y93.01 Activity, walking, marching and hiking; Y92.89 Other specified places as the place of occurrence of the external cause; Y99.9 Unspecified external cause status

== ENCOUNTER 2019-06-19 17:04 | Emergency (ER) | payer OTHER ==
[~2019-06-19] VITALS: Ht 160 cm; Wt 72.6 kg
[~2019-06-19 17:04] MED LIST changes: +KEFLEX500 M1 PO
[2019-06-19 17:06] VITALS: BP 124/72
== END 2019-06-20 08:00 | disposition home or self-care (01) ==
LOC: ED 17:04
DX: F32.9 Major depressive disorder, single episode, unspecified (principal); Z76.0 Encounter for issue of repeat prescription; F12.10 Cannabis abuse, uncomplicated; Z79.82 Long term (current) use of aspirin; Z59.0 Homelessness; Z79.899 Other long term (current) drug therapy

== ENCOUNTER 2019-06-23 22:18 | Emergency (ER) | payer OTHER ==
[~2019-06-23] VITALS: Wt 72.6 kg
[2019-06-23 22:19] VITALS: BP 128/79
[2019-06-23] MEDS ORDERED: CEFADROXIL500 M1 PO (23:24)
[2019-06-23] MEDS ORDERED: SEPTDS PO (23:24)
[2019-06-23] MEDS ORDERED: IBU600 M1 PO (23:25)
== END 2019-06-24 00:02 | disposition home or self-care (01) ==
LOC: ED 22:18
DX: M70.41 Prepatellar bursitis, right knee (principal); Z79.899 Other long term (current) drug therapy; Z79.82 Long term (current) use of aspirin; W22.8XXA Striking against or struck by other objects, initial encounter; Y93.89 Activity, other specified; Y92.89 Other specified places as the place of occurrence of the external cause; Y99.8 Other external cause status

== ENCOUNTER 2019-06-27 22:24 | Inpatient (IN) | payer OTHER ==
[~2019-06-27] VITALS: Ht 160 cm; Wt 68.2 kg
[~2019-06-27 22:24] MED LIST changes: +CEFADROXIL500 M1 PO; +IBU600 M1 PO; +SEPTDS PO
[2019-06-27 22:26] VITALS: BP 142/89
--- NOTE | 2019-06-27 22:33 | NUR ---
PT TO TREATMENT ROOM, ASSESSMENT COMPLETE, PA IN TO EVALUATE PT, RT KNEE NOTED TO BE RED AND SWOLLEN, +PMS NOTED
--- NOTE | 2019-06-27 22:36 | NUR ---
LAB WORK AND XRAY ORDERED BY GERI
--- NOTE | 2019-06-27 22:45 | NUR ---
NAILING MACHINE OPERATOR IN TO DRAW LABS ORDERED
[2019-06-27 22:52] LABS: BASO # 0.1 10*3/uL (0.0-0.1); BASO % 0.7 % (0.0-1.0); EOS # 0.1 10*3/uL (0.0-0.4); EOS % 0.9 % (1.0-4.0); HEMATOCRIT 41.7 % (42.0-52.0); HEMOGLOBIN 14.3 g/dl (14.0-18.0); LYMPH # 1.2 10*3/uL (1.3-4.4); MEAN CELL VOLUME 90.1 fl (80.0-94.0); MEAN CORPUSCULAR HGB 30.9 pg (27.0-31.0); MEAN CORPUSCULAR HGB CONC 34.3 g/dl (33.0-37.0); MEAN PLATELET VOLUME 10.4 fl (9.6-12.3); MONO # 0.8 10*3/uL (0.1-1.0); MONO % 8.8 % (3.0-9.0); NEUT # 6.5 10*3/uL (2.3-7.9); NEUT % 75.4 % (47.0-73.0); PLATELET COUNT AUTOMATED 274 10*3/uL (130-400); RED BLOOD COUNT 4.63 10*6/uL (4.50-5.90); RED CELL DISTRI WIDTH 12.8 % (0-14.5); WHITE BLOOD COUNT 8.6 10*3/uL (4.8-10.8)
--- NOTE | 2019-06-27 22:53 | NUR ---
XRAY COMPLETE ORDERED
[2019-06-27 23:06] LABS: ALBUMIN 3.9 gm/dl (3.1-4.5); ALKALINE PHOSPHATASE 80 U/L (45-117); BUN 11 mg/dl (7-24); CHLORIDE 108 mmol/L (98-107); CREATININE 0.87 mg/dL (0.70-1.30); POTASSIUM 3.6 mmol/L (3.5-5.1); SGOT/AST 15 IU/L (3-35); SGPT/ALT 23 U/L (12-78); SODIUM 141 mmol/L (136-145); TOTAL PROTEIN 7.7 gm/dL (6.4-8.2)
--- NOTE | 2019-06-27 23:37 | NUR ---
pt resting quietly, awaiting lab results and disposition, call dumont in reach, will continue to monitor pt
[2019-06-28 00:02] VITALS: BP 130/73
--- NOTE | 2019-06-28 01:30 | NUR ---
AWAITING MED FROM BEEHIVE KILN SUPERVISOR
[2019-06-28 02:00] VITALS: BP 118/72; BP 132/84
--- NOTE | 2019-06-28 02:00 | NUR ---
Time: 199 A 54 year old M admitted to under services of LEONARDO TUCKER DO. Pt. arrived via from ER. Chief complaint: CELLULITIS OF RIGHT KNEE. BEATRICE KILGORE
--- NOTE | 2019-06-28 02:00 | NUR ---
PT ADMITTED TO EAST IN NO DISTRESS WITH BELONGINGS RESP EASY, SALINE LOCK PATENT WITH ANTIBIOTICS INFUSING WITH NO REDNESSS OR SWELLING
[2019-06-28] MEDS ORDERED: OLANZAPINE5 MG PO (02:15)
[2019-06-28] MEDS ORDERED: ESCITALOPRAM OX10 MG PO (02:16)
--- NOTE | 2019-06-28 03:54 | NUR ---
Patient c/o RIGH KNEE pain. Rated as 6 on a scale of 1-10. PRN NORCO PROVIDED, CALL LIGHT IS WITHIN REACH. WILL MONITOR EFFECT OF MEDICATION. BEATRICE KILGORE A
--- NOTE | 2019-06-28 04:00 | NUR ---
CONTACTED DR. MC REGARDING WOUND CARE ORDERS. NO ORDERS RECIEVED PATIENT DIAGNOSED WITH CELLULITIS.
--- NOTE | 2019-06-28 04:21 | NUR ---
Shift chart check completed.
--- NOTE | 2019-06-28 05:00 | NUR ---
PRN NORCO EFFECTIVE PER PATIENT.
--- NOTE | 2019-06-28 05:27 | NUR ---
LYNNE ALVAREZ [id number] Please refer to the physician's history and physical for past medical history, comorbid conditions, and allergies. Diagnosis: CELLULITIS OF RIGHT KNEE Fidencio Score: 17,AT RISK WOUND DESCRIPTIONS: Wound Number: 1 Location of the wound: Right knee Thickness: Full Size: 0.6cm x 1.2cm x 0.1cm Tunneling: none Undermining: none Sinus Tract: none Presence of Exudate: Purulent Amount: Light Color: Red, yellow, brown Odor: None Periwound Skin Appearance: Erythema Wound edges: approximated Pain (associated with wound): patient stated this is tender at all times How does patient state this happened? pt stated he was carrying sticks and the stood fell and stood up and his knee hit it about 1 week ago Surface the patient is resting on: Position Pro SKIN PREVENTION RECOMMENDATION: 1. Pressure redistribution support surface as appropriate 2. Elevate heels 3. Remove boots/TEDS every shift and reapply 4. Head of bed 30 degrees as tolerated 5. Assess nutrition and hydration 6. Manage moisture 7. Avoid the use of containment devices while in bed 8. Use absorptive products on surfaces limit layers of linens on bed 9. Turn and reposition every 1-2 hours in bed and every 1 hour in chair as tolerated 10. Weight shifts every 15 minutes while up in chair 11. Offloading with pillows or device to keep heels elevated off bed 12. Monitor skin at least every shift 13. Inspect under medical devices twice a day WOUND TREATMENT RECOMMENDATIONS: Imaging studies to right knee due to open area and increase pain. Consult ortho due to open area and increased pain and location of right knee. Full thickness guidelines: Cleanse right knee with nss apply sureprep around the wound therahoney to wound bed and cover with optifoam gentle.
--- NOTE | 2019-06-28 07:10 | NUR ---
PT SLEEPING. EASILY AWAKENED. REPORT RECEIVED FROM BEATRICE. BED LOW.
[2019-06-28 08:00] VITALS: BP 130/87
--- NOTE | 2019-06-28 09:44 | NUR ---
Dr. Moreno notified of wound care recommendations.
--- NOTE | 2019-06-28 09:45 | NUR ---
PT C/O RIGHT KNEE PAIN ARTED 06/13. ADMISNISTERED PO [place]. WILL MONITOR FOR EFFECTIVENESS
--- NOTE | 2019-06-28 10:40 | NUR ---
Patient resting quietly with no c/o discomfort. Respirations easy and regular. Vital signs stable. No overt distress. AP GARCIA
--- NOTE | 2019-06-28 10:45 | NUR ---
SOLVENT MIXER spoke with the patient about being homeless. Patient stated that he is [place] longer living [facility]. However, he has been staying in this area with a friend named Siddhartha. He stated Siddhartha has been assisting him with getting back on his feet and with work. He stated that he does have housing in the works and is hopeful it will work out soon. Patient stated that he had no concerns at this time. SOLVENT MIXER to follow respectfully. -AMELIA Gomes
[2019-06-28 12:00] VITALS: BP 132/75
--- NOTE | 2019-06-28 14:50 | NUR ---
SPOKE TO TARI AT DR CORTES OFFICE AND INFORMED HER OF NEW PT CONSULT. SHE STATED DR ANTOINE WILL NOT BE IN UNTIL MONDAY. DR CLIFTON INFORMED
--- NOTE | 2019-06-28 15:06 | NUR ---
24 HOUR CHART CHECK COMPLETED
--- NOTE | 2019-06-28 15:30 | NUR ---
PATIENT ASSESSMENT COMPLETE AT THIS TIME, DENIES ANY PAIN, CHEST PAIN OR SHORTNESS OF BREATH AT THIS TIME. CALL LIGHT WITHIN REACH, WILL CONTINUE TO MONTIOR.
[2019-06-28 16:00] VITALS: BP 104/62
[2019-06-28 20:00] VITALS: BP 135/83
[2019-06-29] VITALS: BP 116/68
--- NOTE | 2019-06-29 00:20 | NUR ---
RESTING IN BED WITH EYES CLOSED. BED IN LOW LOCKED POSITION. CALL LIGHT WITHIN REACH.
[2019-06-29 06:14] LABS: BASO # 0.1 10*3/uL (0.0-0.1); BASO % 0.8 % (0.0-1.0); EOS # 0.2 10*3/uL (0.0-0.4); EOS % 2.8 % (1.0-4.0); HEMATOCRIT 41.1 % (42.0-52.0); HEMOGLOBIN 13.9 g/dl (14.0-18.0); LYMPH # 1.7 10*3/uL (1.3-4.4); LYMPH % 21.2 % (27.0-41.0); MEAN CELL VOLUME 89.5 fl (80.0-94.0); MEAN CORPUSCULAR HGB 30.3 pg (27.0-31.0); MEAN CORPUSCULAR HGB CONC 33.8 g/dl (33.0-37.0); MEAN PLATELET VOLUME 10.7 fl (9.6-12.3); MONO # 0.7 10*3/uL (0.1-1.0); MONO % 8.6 % (3.0-9.0); NEUT # 5.2 10*3/uL (2.3-7.9); NEUT % 66.3 % (47.0-73.0); PLATELET COUNT AUTOMATED 251 10*3/uL (130-400); RED BLOOD COUNT 4.59 10*6/uL (4.50-5.90); RED CELL DISTRI WIDTH 12.8 % (0-14.5); WHITE BLOOD COUNT 7.8 10*3/uL (4.8-10.8)
[2019-06-29 06:38] LABS: BUN 10 mg/dl (7-24); CHLORIDE 111 mmol/L (98-107); CREATININE 0.82 mg/dL (0.70-1.30); POTASSIUM 4.4 mmol/L (3.5-5.1); SODIUM 140 mmol/L (136-145)
[2019-06-29 08:00] VITALS: BP 127/43
[2019-06-29 12:00] VITALS: BP 151/84
[2019-06-29 16:00] VITALS: BP 136/82
--- NOTE | 2019-06-29 19:25 | NUR ---
CALLED AND INFORMED THAT PATIENT STATED HE WAS HAVING A WEIRD SENSATION THROUGHOUT BODY THAT HE HAS HAD BEFORE PRIOR TO HAVING A STROKE. PATIENT STATED THAT HE HAS HAD X3 STROKES WITH THE LAST BEING IN PAST AUGUST. VS 98.2 56 20 144/78(M) 98% RA. PATIENT HAS EQUAL BL GRASP AND APPROPIATE AROM, ADEQUATE SMILING. NO NOTED SLURRING OF WORDS. DR. JIMENEZ STATED THAT HE WILL COME LOOK AT PATIENT.
[2019-06-29 19:26] VITALS: BP 144/78
--- NOTE | 2019-06-29 19:40 | NUR ---
WAS IN TO SEE PATIENT. STATED HE IS OK FOR HIS POINT OF VIEW. CALL LIGHT LEFT WITHIN REACH
[2019-06-30] VITALS: BP 144/78
--- NOTE | 2019-06-30 01:57 | NUR ---
24 HR chart check completed.
[2019-06-30 08:00] VITALS: BP 120/86; BP 132/84
[2019-06-30 12:00] VITALS: BP 136/85
[2019-06-30 16:00] VITALS: BP 123/87
--- NOTE | 2019-06-30 19:40 | NUR ---
PATIENT RESTING IN BED. C/O RIGHT KNEE PAIN. BED IN LOWEST POSITION, CALL LIGHT IN REACH
[2019-06-30 20:00] VITALS: BP 121/78
--- NOTE | 2019-06-30 20:01 | NUR ---
MEDICATED WITH PRN NORCO FOR C/O RIGHT KNEE PAIN RATED 6/10 ON A 0/10 PAIN SCALE. WILL MONITOR
--- NOTE | 2019-06-30 23:56 | NUR ---
24 HR chart check completed.
[2019-07-01 00:03] VITALS: BP 132/72
[2019-07-01 06:24] LABS: CREATININE 0.86 mg/dL (0.70-1.30)
[2019-07-01 06:28] LABS: BASO # 0.1 10*3/uL (0.0-0.1); EOS # 0.2 10*3/uL (0.0-0.4); EOS % 3.1 % (1.0-4.0); HEMATOCRIT 41.1 % (42.0-52.0); LYMPH # 1.8 10*3/uL (1.3-4.4); LYMPH % 30.1 % (27.0-41.0); MEAN CELL VOLUME 90.7 fl (80.0-94.0); MEAN CORPUSCULAR HGB 30.9 pg (27.0-31.0); MEAN CORPUSCULAR HGB CONC 34.1 g/dl (33.0-37.0); MONO # 0.6 10*3/uL (0.1-1.0); MONO % 10.3 % (3.0-9.0); NEUT # 3.2 10*3/uL (2.3-7.9); PLATELET COUNT AUTOMATED 258 10*3/uL (130-400); RED BLOOD COUNT 4.53 10*6/uL (4.50-5.90); RED CELL DISTRI WIDTH 12.7 % (0-14.5); WHITE BLOOD COUNT 5.8 10*3/uL (4.8-10.8)
[2019-07-01 08:00] VITALS: BP 131/72
--- NOTE | 2019-07-01 09:00 | NUR ---
case management visits with patient, he stated he would be returning home when medically stable for discharge, discussed with him if he was able to afford medications and he stated he was able to pay for them, patient denies any other needs at this time
[2019-07-01 12:00] VITALS: BP 146/88
--- NOTE | 2019-07-01 15:10 | NUR ---
Nutritional Support Services Note: Pt was triggered for uncontrolled DM and wounds. See no dx of diabetes, or any meds for DM. BS is normal at 95. Cellulitis noted to right knee. Appetite is good for meals. Regular diet as ordered. No nutrition intervention needed at this time. Will follow as needed. Barbara Sands Rdn Ld
--- NOTE | 2019-07-01 15:30 | NUR ---
PT RESTING IN BED, EYES CLOSED, SLEEPING. RESPIRATIONS EASY AND UNLABORED ON ROOM AIR. PT AROUSES EASILY. ASSESSMENT COMPLETE AT THIS TIME WITH NO NEW ABNORMALITIES. DRESSING TO RIGHT KNEE C/D/I. PT DENIES PAIN. ALL SAFETY MEASURES IN PLACE. CALL LIGHT IN REACH.
[2019-07-01 16:00] VITALS: BP 109/59
--- NOTE | 2019-07-01 16:35 | NUR ---
DR ANTOINE CALLS AND STATES THAT SHE WILL BE UP TO FLOOR TO PERFORM I&D ON PT RIGHT KNEE.
[2019-07-01 16:54] VITALS: BP 122/62
--- NOTE | 2019-07-01 17:00 | NUR ---
PT HAVING I&D WITH DR ANTOINE AT THIS TIME. DRESSING PLACED WITH 4X4s, GAUZE WRAPPING, AND ERIKA BANDAGE WRAPS. PER DR ANTOINE, DRESSING WILL NOT NEED CHANGED TOMORROW UNLESS PT IS DISCHARGED.
--- NOTE | 2019-07-01 17:16 | NUR ---
PT GIVEN NORCO 5-325 MG TAB FOR C/O PAIN TO RIGHT KNEE POST I&D, WILL MONITOR FOR EFFECTIVENESS. PT LYING IN BED, ALL SAFETY MEASURES IN PLACE. CALL LIGHT IN REACH.
--- NOTE | 2019-07-01 17:52 | NUR ---
TUMS GIVEN TO PT FOR C/O HEARTBURN. WILL MONITOR FOR EFFECTIVENESS.
--- NOTE | 2019-07-01 18:16 | NUR ---
MARCY EFFECTIVE PER PT.
[2019-07-01 20:00] VITALS: BP 148/81
--- NOTE | 2019-07-01 20:59 | NUR ---
PATIENT RESTING IN BED WATCHING TV. DENIES ANY NEEDS OR PAIN AT THIS TIME. BED IN LOWEST POSITION, CALL LIGHT IN REACH
--- NOTE | 2019-07-01 21:25 | NUR ---
ATTEMPTED TO CALL DR JIMENEZ REGARDING PATIENT REQUESTING SOMETHING TO HELP HIM SLEEP. NO ANSWER AT THIS TIME
--- NOTE | 2019-07-01 21:31 | NUR ---
MEDICATED WITH PRN ZOFRAN WITH C/O NAUSEA.
--- NOTE | 2019-07-01 21:34 | NUR ---
DR JIMENEZ AWARE OF PATIENT REQUESTING SOMETHING TO HELP HIM SLEEP. STATES HE WILL PUT SOMETHING IN.
--- NOTE | 2019-07-01 22:07 | NUR ---
MEDICATED WITH PRN RESTORIL FOR C/O SLEEPLESSNESS
--- NOTE | 2019-07-01 23:30 | NUR ---
24 HR chart check completed.
[2019-07-02] VITALS: BP 112/69
--- NOTE | 2019-07-02 00:08 | NUR ---
PREVIOUS MEDICATIONS EFFECTIVE
[2019-07-02 08:00] VITALS: BP 120/84
--- NOTE | 2019-07-02 09:00 | NUR ---
social media director is working with patient regarding a discharge plan, case management will follow
--- NOTE | 2019-07-02 09:45 | NUR ---
client is well known to me, he has not been able to get into free or government housing due to hx felony hx, he has to report and register so he has been struggling with no housing, he has been homeless according to him for 5 years, he has had several people try to help him and let him stay with them, but he has not been able to get along with them and he does not want to work for them or help them so they have all eventually made him leave, he wants to buy a house or have someone buy him a house and that has not worked out, he does not work and feels that he is too old and to sick to work. he has tried to get ssi and he has been denied. he was in a assisted in [place] and he left there to return to [place] because he did not like it in [place] and he was fearful of being harmed or killed. i spoke with client this am who had told me a few days ago that he was staying at a house that his friend fatmata had and that fatmata was going to buy a house for client, this am when i asked client about this , he said no that was temporary and now i have no where to go, however client has been in this situation for years and there are not available resources here and he does not want to leave this area, i did discuss with zenon purvis and angie acmpos. michele.
--- NOTE | 2019-07-02 10:43 | NUR ---
WORKFORCE MANAGEMENT MANAGER spoke to the patient about being homeless. The previously stated he would be able to return to his friend Gerardo garay. However, the patient stated now he can no longer return to his friends home. He stated that he has no other family or friends he can turn too. Patient stated to reach out to Kristal Rock who has been working with him. WORKFORCE MANAGEMENT MANAGER spoke with Kristal who stated she has been trying to get the patient to go to a [facility] in [place], but the patient has been refusing. WORKFORCE MANAGEMENT MANAGER spoke with the patient about the Penitentiary in [place] patient refused and stated "People got killed last time I was up there." Patient stated he was upt there over a year ago and will not go back. WORKFORCE MANAGEMENT MANAGER has a message out to Kristal Rock to inquire about a fdc in [place], but there may be an issue with the patient crossing state lines. -AMELIA Gomes
--- NOTE | 2019-07-02 11:41 | NUR ---
PLOW AND BORING MACHINE TENDER spoke with the patient about needing to register with [facility] in [place]. Patient expressed again that he will not go to the penitentiary in [place]. Patient stated he has exshausted all aveunes. PLOW AND BORING MACHINE TENDER explained the options are very limited due to the situation. Patient stated that the only option he can see is to take his own life. PLOW AND BORING MACHINE TENDER spoke to the patient about not taking his own life. Patient stated that its the only option that he has because he can not get a break and no one can help him. PLOW AND BORING MACHINE TENDER spoke with RN-Brittney Foreman about a consult for Kristal Rock to evaluate the patient due to him expressing suicidal ideations to this PLOW AND BORING MACHINE TENDER. -AMELIA Gomes
[2019-07-02 12:00] VITALS: BP 112/62
--- NOTE | 2019-07-02 12:28 | NUR ---
JUAN DIEGO PARKER NOTIFIED OF CONSULT.
--- NOTE | 2019-07-02 14:42 | NUR ---
met with client who is well knownto me, i questioned him about his statement to the nurse about shooting himself if he had to go to [place], he tells me that he just gets frustrated, that he will not harm himself, he has no access to a gun and cannot have a gun do to to being a fleon, he said he would go to custodial. client reports that he is going to try to buy a house, he said that his friend has not contacted him back, fatmata that was helping him and i reminded him that he has no phone and has been here so perhaos that is why, he agreed. he denies any present thoughts of suicide, he reports that he may get out tomorrow and he has some plans, he called his other friend to bring his items that he has and drop them off to the office to his welfare case worker. client has future goals and orientation. his homelessness is not a new event. he is a&ox4, he has no psychosis. client is not a present risk for suicide, he can follow as an outpatient.
[2019-07-02 16:00] VITALS: BP 142/84
--- NOTE | 2019-07-02 19:36 | NUR ---
PATIENT MEDICATED WITH PRN NORCO FOR C/O PAIN IN RIGHT KNEE. WILL MONITOR
[2019-07-02 20:00] VITALS: BP 143/82
--- NOTE | 2019-07-02 21:30 | NUR ---
MEDICATION EFFECTIVE PER PATIENT
[2019-07-03 08:00] VITALS: BP 139/98
[2019-07-03] MEDS ORDERED: LISINOPRIL10 M1 PO (10:42)
[2019-07-03] MEDS ORDERED: VIBRAMYCIN100 MG PO (10:42)
--- NOTE | 2019-07-03 14:33 | NUR ---
DISCHARGE INSTRUCTIONS REVIEWED. HEPLOCK REMOVED. PT WISHES TO WASH UP BEFORE LEAVING AND WAS GIVEN SUPPLIES.
--- NOTE | 2019-07-03 15:10 | NUR ---
PT PROVIDED SHIRT FROM [facility] [place] AFTER STATING HE MUST OF LOST HIS AND AMBULATED OFF THE FLOOR WITH INSTRUCTIOSN ON WHERE TO COMPANION HIS PRESCRIPTIONS.
== END 2019-07-03 15:10 | disposition home or self-care (01) | DRG 317 ==
LOC: ED 22:24 → 4E 06-28 00:22 → EDHOLD 06-28 00:22 → 4E 06-28 01:10
PROVIDERS: Family Medicine; Physician Assistant; ADMIT Internal Medicine
PROC: 0M9N0ZZ Drainage of Right Knee Bursa and Ligament, Open Approach (ICD-10-PCS; principal; 2019-07-01)
DX: M71.161 Other infective bursitis, right knee (principal); L03.115 Cellulitis of right lower limb; I10 Essential (primary) hypertension; B35.1 Tinea unguium; K21.9 Gastro-esophageal reflux disease without esophagitis; F31.9 Bipolar disorder, unspecified; R00.1 Bradycardia, unspecified; R45.851 Suicidal ideations; Y93.89 Activity, other specified; Z82.49 Family history of ischemic heart disease and other diseases of the circulatory system; Z86.73 Personal history of transient ischemic attack (TIA), and cerebral infarction without residual deficits; Z87.442 Personal history of urinary calculi; Z79.899 Other long term (current) drug therapy; Z79.82 Long term (current) use of aspirin; Z59.0 Homelessness

== ENCOUNTER 2019-07-05 04:54 | Emergency (ER) | payer OTHER ==
[~2019-07-05] VITALS: Ht 160 cm; Wt 72.6 kg
[~2019-07-05 04:54] MED LIST changes: +ESCITALOPRAM OX10 MG PO; +OLANZAPINE5 MG PO; +VIBRAMYCIN100 MG PO
[2019-07-05 07:29] VITALS: BP 94/76
== END 2019-07-05 08:54 | disposition home or self-care (01) ==
LOC: ED 04:54
DX: R11.0 Nausea (principal); M25.561 Pain in right knee; K21.9 Gastro-esophageal reflux disease without esophagitis; I10 Essential (primary) hypertension; Z87.442 Personal history of urinary calculi; Z79.899 Other long term (current) drug therapy; Z79.2 Long term (current) use of antibiotics

== ENCOUNTER 2019-07-11 16:05 | Inpatient (IN) | payer OTHER ==
[~2019-07-11] VITALS: Ht 160 cm; Wt 68.9 kg
--- NOTE | ~2019-07-11 | CON ---
[place], [place] REPORT OF CONSULTATION NAME: LYNNE ALVAREZ UNIT #: [id number] ROOM: 405 DOCTOR: JOYCELYN ALVES MD BIRTHDATE: [birth year] DOS: 07/12/2019 GASTROENDOSCOPIC REPORT HISTORY OF PRESENT ILLNESS: The patient is a 54-year-old patient who has presented with chief complaint of rectal bleed, undergoing investigation. His labs and records were evaluated. His CBC differential, H and H was 13 and 39, white blood cell was 84. Differential was normal. Comprehensive metabolic panel: GFR greater than 60. Electrolytes, liver function tests all normal. Lactic acid 2.1. CT scan of the abdomen and pelvis, stomach is moderately distended, fluid filled stomach, possible narrowing and thickening of the pyloric ring, neoplasm cannot be ruled out. Endoscopy was recommended. Stool and gas throughout the length of the colon, was a questionable thickening of the anal region also in differential. Lactic acid 1.1. CBC differential within normal limit. Basic metabolic, normal. PAST MEDICAL HISTORY: Unremarkable except bipolar, reflux, history of ulcer, CVA, history of hypertension. He is telling me he is not taking any medication at home. PAST SURGICAL HISTORY: None. SOCIAL HISTORY: Marijuana user. FAMILY HISTORY: Noncontributory. ALLERGIES: No known medications. MEDICATIONS: Lisinopril and doxycycline. REVIEW OF SYSTEMS: HEENT: Denies double vision, blurred vision. RESPIRATORY: Denies shortness of breath. CARDIOVASCULAR: Denies chest pain. DIGESTIVE SYSTEM: Lower GI bleed. PHYSICAL EXAMINATION: VITAL SIGNS: Stable. HEENT: Benign. NECK: Supple, no thyromegaly, no cervical lymphadenopathy. CHEST: Symmetric anatomy, equal expansion. HEART: Normal sinus rhythm, no gallop, no murmur. ABDOMEN: Soft. No hepato-organomegaly. Bowel sounds present. EXTREMITIES: No cyanosis, no pedal edema. NEUROLOGIC: Alert, oriented to time, place, or person. IMPRESSION: Gastrointestinal bleed, source under investigation. Upper and lower endoscopy in progress. [place], [place] REPORT OF CONSULTATION NAME: LYNNE ALVAREZ UNIT #: [id number] ROOM: 405 DOCTOR: JOYCELYN ALVES MD BIRTHDATE: [birth year] JOYCELYN ALVES MD CM:CONSTR:REPORT OF CONSULTATION 1142 07/12/19 1610 interface
--- NOTE | ~2019-07-11 | O ---
[place], [place] OPERATIVE NOTE NAME: LYNNE ALVAREZ UNIT #: [id number] ROOM: 405 DOCTOR: JOYCELYN ALVES MD BIRTHDATE: [birth year] DOS: 07/12/2019 GASTROENDOSCOPIC REPORT INDICATIONS: A 54-year-old patient who has presented with chief complaint of epigastric abdominal pain, GI bleed. PROCEDURE: Today's procedure part of investigation is panendoscopy and colonoscopy. PREMEDICATION: Propofol. SCOPE: Olympus forward-viewing gastroscope Q10 video. REPORT: After putting the patient in left lateral position and application of lubricant to the scope, the scope was introduced. Thereafter, under direct visualization, advanced through the length of esophagus. Multiple esophageal ulceration secondary to reflux was noticed. Hiatal hernia seen about 2.5 cm. Gastric pouch was entered. Gastritis seen. Antral biopsy was obtained. Duodenitis was noticed. GI reflexion of the scope reveals cardia to be benign. Air was suctioned out. The patient was extubated, tolerated the procedure well. IMPRESSION: Esophageal ulceration secondary to reflux. Hiatal hernia, gastritis, and duodenitis. PLAN AND DISCUSSION: I am going to proceed with colonoscopy. INDICATIONS: The patient with GI bleed, undergoing investigation. PROCEDURE: Today's procedure part of investigation is colonoscopy. PREMEDICATION: Propofol. SCOPE: Olympus forward-viewing colonoscope 10L video. DESCRIPTION OF PROCEDURE: After putting the patient in left lateral position and application of lubricant to the scope, the scope was introduced. Thereafter, under direct visualization, advanced through the length of colon without difficulty. Mucosa and vascularity appears to be benign. Base of the cecum explored, appendiceal orifice identified and photographed. Scope was withdrawn back to the rectum. Some proctitis was noticed, which we are going to address with Anucort-HC suppository, otherwise regular diet. [place], [place] OPERATIVE NOTE NAME: LYNNE ALVAREZ UNIT #: [id number] ROOM: 405 DOCTOR: JOYCELYN ALVES MD BIRTHDATE: [birth year] JOYCELYN ALVES MD CM:OPRECORD:OPERATIVE NOTE [id number] JOYCELYN ALVES MD 07/12/19 1313 interface
[2019-07-11 16:08] VITALS: BP 145/84
[2019-07-11 18:15] LABS: BASO # 0.1 10*3/uL (0.0-0.1); BASO % 0.7 % (0.0-1.0); EOS # 0.1 10*3/uL (0.0-0.4); EOS % 1.5 % (1.0-4.0); HEMATOCRIT 39.2 % (42.0-52.0); HEMOGLOBIN 13.2 g/dl (14.0-18.0); LYMPH % 22.8 % (27.0-41.0); MEAN CORPUSCULAR HGB 30.6 pg (27.0-31.0); MEAN CORPUSCULAR HGB CONC 33.7 g/dl (33.0-37.0); MEAN PLATELET VOLUME 10.5 fl (9.6-12.3); MONO # 0.7 10*3/uL (0.1-1.0); MONO % 7.9 % (3.0-9.0); NEUT # 5.8 10*3/uL (2.3-7.9); NEUT % 66.6 % (47.0-73.0); PLATELET COUNT AUTOMATED 283 10*3/uL (130-400); RED BLOOD COUNT 4.31 10*6/uL (4.50-5.90); RED CELL DISTRI WIDTH 12.3 % (0-14.5); WHITE BLOOD COUNT 8.7 10*3/uL (4.8-10.8)
[2019-07-11 18:32] LABS: ALBUMIN 3.5 gm/dl (3.1-4.5); ALKALINE PHOSPHATASE 73 U/L (45-117); BUN 10 mg/dl (7-24); CHLORIDE 105 mmol/L (98-107); CREATININE 0.88 mg/dL (0.70-1.30); LIPASE 121 U/L (73-393); POTASSIUM 3.9 mmol/L (3.5-5.1); SGOT/AST 20 IU/L (3-35); SGPT/ALT 37 U/L (12-78); SODIUM 142 mmol/L (136-145); TOTAL PROTEIN 6.7 gm/dL (6.4-8.2)
--- NOTE | 2019-07-11 20:32 | NUR ---
HAYDEE GIVEN BY REINALDO SANTOS
[2019-07-11 21:30] VITALS: BP 111/60
[2019-07-11 21:43] VITALS: BP 121/71
--- NOTE | 2019-07-11 21:43 | NUR ---
A 54, admitted to , under the services of KHANH Atkins DO with a diagnosis of ENTERITIS. Chief complaint is CONSTIPATION. Patient arrived via bed from ER. Monitor applied. Initial assessment completed. Vital signs taken and recorded. KHANH ATKINS DO notified of admission to the unit. Orders received. See assessment for past medical history, medications and allergies. Patient and/or family oriented to unit. [address] visitation policy reviewed. Clothing/patient valuable form completed. NO WOUNDS PRESENT ON ADMISSION. PT IS REFUSING FLU VACCINATION. STATES HE HAS "NEVER GETS ONE". NIYAH MORRISSEY
[2019-07-11] MEDS ORDERED: LISINOPRIL10 M1 PO (22:07)
--- NOTE | 2019-07-11 22:10 | NUR ---
DR HAIRSTON NOTIFIED OF UPDATED MED REC.
--- NOTE | 2019-07-11 22:50 | NUR ---
ATTEMPTED TO CALL NEW PATIENT CONSULT TO DR ALVES. VOICEMAIL LEFT. AWAITING CALL BACK.
[2019-07-12] VITALS (7 sets, daily range): BP systolic 114–157; BP diastolic 67–92
--- NOTE | 2019-07-12 00:01 | NUR ---
SPOKE WITH DR ALVES. WANTS PT TO BE COLO PREPPED FOR A COLONOSCOPY TOMORROW.
--- NOTE | 2019-07-12 00:11 | NUR ---
PT TO HAVE COLONOSCOPY WITH DR ALVES 07/12.
--- NOTE | 2019-07-12 02:39 | NUR ---
SURGERY PACKET COMPLETED AND PLACED ON PTS CHART.
--- NOTE | 2019-07-12 02:40 | NUR ---
DULCOLAX AND MIRALAX BEING ADMINISTERED AT THIS TIME TO BEGIN COLO PREP.
--- NOTE | 2019-07-12 04:08 | NUR ---
PT HAD TWO MEDIUM BILE COLORED EMESIS THIS MORNING. PT DENIES ANY NAUSEA. PRN ZOFRAN ADMINISTERED IN ATTEMPT TO STOP EMESIS. PT STOOL IS STIL SLIGHTLY FORMED AT THIS TIME. WILL CONTINUE TO MONITOR.
--- NOTE | 2019-07-12 06:25 | NUR ---
PT DID NOT RUN CLEAR AFTER FLEETS. MULTIPLE PASSES OF A TAP WATER WAS PREFORMED UNTIL PT RAN CLEAR. FULL BAG GIVEN. PT RUNNING CLEAR OF NOW.
[2019-07-12 06:29] LABS: BASO # 0.1 10*3/uL (0.0-0.1); BASO % 0.6 % (0.0-1.0); EOS # 0.2 10*3/uL (0.0-0.4); HEMATOCRIT 42.5 % (42.0-52.0); LYMPH # 1.4 10*3/uL (1.3-4.4); LYMPH % 17.3 % (27.0-41.0); MEAN CELL VOLUME 92.4 fl (80.0-94.0); MEAN CORPUSCULAR HGB 30.4 pg (27.0-31.0); MEAN CORPUSCULAR HGB CONC 32.9 g/dl (33.0-37.0); MEAN PLATELET VOLUME 10.7 fl (9.6-12.3); MONO # 0.6 10*3/uL (0.1-1.0); MONO % 7.6 % (3.0-9.0); NEUT # 5.7 10*3/uL (2.3-7.9); NEUT % 72.1 % (47.0-73.0); PLATELET COUNT AUTOMATED 280 10*3/uL (130-400); RED CELL DISTRI WIDTH 12.7 % (0-14.5); WHITE BLOOD COUNT 7.9 10*3/uL (4.8-10.8)
[2019-07-12 06:42] LABS: BUN 6 mg/dl (7-24); CHLORIDE 107 mmol/L (98-107); CREATININE 0.91 mg/dL (0.70-1.30); PHOSPHOROUS 2.4 mg/dL (2.5-4.9); POTASSIUM 4.2 mmol/L (3.5-5.1); SODIUM 140 mmol/L (136-145)
--- NOTE | 2019-07-12 07:43 | NUR ---
Shift chart check completed.
--- NOTE | 2019-07-12 09:00 | NUR ---
Stone Fabricator in to talk to patient. Patient states lives at home with alone. There are few steps in the home. Physician: braulio allen [facility]acy: [facility] Home health services: none Patient's level of ADLs: INDEPENDENT Patient has working utilities: all working DME: none Follow-up physician's appointment after d/c: will be made by hospitalist nurse director upon discharge Does patient want to access PORTAL?: no Discharge plan discussed with patient, he stated since the last visit to the hospital he now has a home on [address] in [place], he has electricity and water, he states he walks to the store or anywhere else he may need to go, he states he will return home when able and denies any home needs. GIA SANDERS
--- NOTE | 2019-07-12 13:29 | NUR ---
RETURN FROM SURGERY
--- NOTE | 2019-07-12 20:19 | NUR ---
24 HOUR CHART CHECK COMPLETE.
[2019-07-13] VITALS: BP 136/75
[2019-07-13 06:51] LABS: BASO # 0.1 10*3/uL (0.0-0.1); BASO % 0.9 % (0.0-1.0); EOS # 0.2 10*3/uL (0.0-0.4); EOS % 2.1 % (1.0-4.0); HEMATOCRIT 40.5 % (42.0-52.0); HEMOGLOBIN 13.7 g/dl (14.0-18.0); LYMPH # 1.4 10*3/uL (1.3-4.4); LYMPH % 17.7 % (27.0-41.0); MEAN CELL VOLUME 90.2 fl (80.0-94.0); MEAN CORPUSCULAR HGB 30.5 pg (27.0-31.0); MEAN CORPUSCULAR HGB CONC 33.8 g/dl (33.0-37.0); MEAN PLATELET VOLUME 10.9 fl (9.6-12.3); MONO # 0.5 10*3/uL (0.1-1.0); MONO % 6.6 % (3.0-9.0); NEUT # 5.9 10*3/uL (2.3-7.9); NEUT % 72.3 % (47.0-73.0); PLATELET COUNT AUTOMATED 269 10*3/uL (130-400); RED BLOOD COUNT 4.49 10*6/uL (4.50-5.90); RED CELL DISTRI WIDTH 12.4 % (0-14.5); WHITE BLOOD COUNT 8.1 10*3/uL (4.8-10.8)
[2019-07-13 07:02] LABS: ALBUMIN 3.4 gm/dl (3.1-4.5); BUN 11 mg/dl (7-24); CHLORIDE 108 mmol/L (98-107); CREATININE 0.94 mg/dL (0.70-1.30); POTASSIUM 4.1 mmol/L (3.5-5.1); SGOT/AST 18 IU/L (3-35); SGPT/ALT 31 U/L (12-78); SODIUM 141 mmol/L (136-145)
[2019-07-13 07:03] LABS: ALKALINE PHOSPHATASE 73 U/L (45-117); TOTAL PROTEIN 6.6 gm/dL (6.4-8.2)
[2019-07-13 08:00] VITALS: BP 142/97
[2019-07-13 12:00] VITALS: BP 152/90
[2019-07-13 16:00] VITALS: BP 137/81
[2019-07-13 20:00] VITALS: BP 147/89
--- NOTE | 2019-07-13 21:50 | NUR ---
PATIENT'S HEPLOCK OUT AT THIS TIME. NEW 22G PERIPHERAL IV INSERTED INTO RIGHT ARM ON FIRST ATTEMPT WITHOUT DIFFICULTY. AREA PREPPED WITH ALCOHOL. PATIENT TOLERATED WELL. DENIES COMPLAINTS OF PAIN OR DISCOMFORT AT THIS TIME. RESPIRATIONS REGULAR AND NON-LABORED. VSS. AMBULATED PER SELF. WILL CONTINUE TO MONITOR. CALL LIGHT IN REACH.
[2019-07-14] VITALS: BP 133/76
[2019-07-14 06:27] LABS: BASO # 0.1 10*3/uL (0.0-0.1); BASO % 0.8 % (0.0-1.0); EOS # 0.2 10*3/uL (0.0-0.4); EOS % 2.5 % (1.0-4.0); HEMATOCRIT 41.8 % (42.0-52.0); HEMOGLOBIN 14.1 g/dl (14.0-18.0); LYMPH # 1.5 10*3/uL (1.3-4.4); MEAN CELL VOLUME 90.9 fl (80.0-94.0); MEAN CORPUSCULAR HGB 30.7 pg (27.0-31.0); MEAN CORPUSCULAR HGB CONC 33.7 g/dl (33.0-37.0); MONO # 0.8 10*3/uL (0.1-1.0); MONO % 9.5 % (3.0-9.0); NEUT # 5.8 10*3/uL (2.3-7.9); NEUT % 68.7 % (47.0-73.0); PLATELET COUNT AUTOMATED 292 10*3/uL (130-400); RED CELL DISTRI WIDTH 12.4 % (0-14.5); WHITE BLOOD COUNT 8.4 10*3/uL (4.8-10.8)
[2019-07-14 06:52] LABS: ALBUMIN 3.5 gm/dl (3.1-4.5); BUN 15 mg/dl (7-24); CHLORIDE 104 mmol/L (98-107); CREATININE 1.12 mg/dL (0.70-1.30); SGOT/AST 17 IU/L (3-35); SGPT/ALT 34 U/L (12-78); SODIUM 138 mmol/L (136-145); TOTAL PROTEIN 6.9 gm/dL (6.4-8.2)
[2019-07-14 06:53] LABS: ALKALINE PHOSPHATASE 77 U/L (45-117)
[2019-07-14 09:00] VITALS: BP 123/83
[2019-07-14] MEDS ORDERED: CARAFATE1 G1 PO (10:44)
[2019-07-14] MEDS ORDERED: Anusol Hc,Anuco25 MG R (10:44)
[2019-07-14] MEDS ORDERED: ZOFRAN4 MG PO (10:44)
[2019-07-14] MEDS ORDERED: PANTOPRAZOLE SO40 MG PO (10:44)
[2019-07-14] MEDS ORDERED: ACID GONE TABL1 EACH PO (10:44)
--- NOTE | 2019-07-14 12:24 | NUR ---
Discharge instructions reviewed with patient/family. Patient receptive and verbalizes understanding. Written instructions given to patient/family. PATIENT OFFERED WC FOR D/C, DECLINED. AMBULATED OFF FLOOR. NO DISTRESS NOTED BLAIRE FRANCOIS
== END 2019-07-14 13:07 | disposition home or self-care (01) | DRG 241 ==
LOC: ED 16:05 → 4E 20:23 → EDHOLD 20:23 → 4E 21:30
PROVIDERS: Emergency Medicine; Physician Assistant; Student in an Organized Health Care Education/Training Program; ADMIT Internal Medicine
PROC: 0DB78ZX Excision of Stomach, Pylorus, Via Natural or Artificial Opening Endoscopic, Diagnostic (ICD-10-PCS; principal; 2019-07-12)
PROC: 0DJD8ZZ Inspection of Lower Intestinal Tract, Via Natural or Artificial Opening Endoscopic (ICD-10-PCS; 2019-07-12)
DX: K29.71 Gastritis, unspecified, with bleeding (principal); E44.1 Mild protein-calorie malnutrition; K52.9 Noninfective gastroenteritis and colitis, unspecified; D64.9 Anemia, unspecified; E87.2 Acidosis; K31.89 Other diseases of stomach and duodenum; R73.9 Hyperglycemia, unspecified; K21.9 Gastro-esophageal reflux disease without esophagitis; E55.9 Vitamin D deficiency, unspecified; I10 Essential (primary) hypertension; K62.89 Other specified diseases of anus and rectum; F31.9 Bipolar disorder, unspecified; K29.81 Duodenitis with bleeding; K22.11 Ulcer of esophagus with bleeding; K44.9 Diaphragmatic hernia without obstruction or gangrene; Z82.49 Family history of ischemic heart disease and other diseases of the circulatory system; Z86.73 Personal history of transient ischemic attack (TIA), and cerebral infarction without residual deficits; Z79.899 Other long term (current) drug therapy; Z68.27 Body mass index [BMI] 27.0-27.9, adult

== ENCOUNTER 2019-07-15 17:52 | Emergency (ER) | payer OTHER ==
[~2019-07-15] VITALS: Ht 160 cm; Wt 72.6 kg
[2019-07-15 17:52] VITALS: BP 147/90
[~2019-07-15 17:52] MED LIST changes: +ACID GONE TABL1 EACH PO; +Anusol Hc,Anuco25 MG R; +CARAFATE1 G1 PO; +PANTOPRAZOLE SO40 MG PO; +ZOFRAN4 MG PO
== END 2019-07-15 20:00 | disposition home or self-care (01) ==
LOC: ED 17:52
DX: M54.5 Low back pain (principal); Z79.899 Other long term (current) drug therapy

== ENCOUNTER 2019-07-28 11:22 | Emergency (ER) | payer OTHER ==
[~2019-07-28] VITALS: Ht 160 cm; Wt 72.6 kg
[2019-07-28 11:23] VITALS: BP 140/82
[2019-07-28 12:02] LABS: BASO # 0.1 10*3/uL (0.0-0.1); BASO % 0.9 % (0.0-1.0); EOS # 0.1 10*3/uL (0.0-0.4); EOS % 1.5 % (1.0-4.0); HEMOGLOBIN 14.3 g/dl (14.0-18.0); LYMPH # 1.3 10*3/uL (1.3-4.4); LYMPH % 19.5 % (27.0-41.0); MEAN CELL VOLUME 89.4 fl (80.0-94.0); MEAN CORPUSCULAR HGB 30.4 pg (27.0-31.0); MEAN PLATELET VOLUME 10.4 fl (9.6-12.3); MONO # 0.5 10*3/uL (0.1-1.0); MONO % 7.3 % (3.0-9.0); NEUT # 4.6 10*3/uL (2.3-7.9); NEUT % 70.6 % (47.0-73.0); PLATELET COUNT AUTOMATED 272 10*3/uL (130-400); RED CELL DISTRI WIDTH 12.4 % (0-14.5); WHITE BLOOD COUNT 6.6 10*3/uL (4.8-10.8)
[2019-07-28 12:12] LABS: ACT PARTIAL THROMBO TIME 29.3 SECONDS (20.0-32.1)
[2019-07-28 12:17] LABS: ALBUMIN 3.7 gm/dl (3.1-4.5); ALKALINE PHOSPHATASE 71 U/L (45-117); BUN 9 mg/dl (7-24); CHLORIDE 108 mmol/L (98-107); CREATININE 0.95 mg/dL (0.70-1.30); POTASSIUM 3.7 mmol/L (3.5-5.1); SGOT/AST 16 IU/L (3-35); SGPT/ALT 26 U/L (12-78); SODIUM 144 mmol/L (136-145)
[2019-07-28] MEDS ORDERED: VOLTAREN100 GM T (14:06)
[2019-07-28] MEDS ORDERED: CEPHALEXIN500 M1 PO (14:06)
== END 2019-07-28 14:14 | disposition home or self-care (01) ==
LOC: ED 11:22
PROVIDERS: Emergency Medicine
DX: I80.8 Phlebitis and thrombophlebitis of other sites (principal); K21.9 Gastro-esophageal reflux disease without esophagitis; I10 Essential (primary) hypertension; F12.10 Cannabis abuse, uncomplicated; F17.200 Nicotine dependence, unspecified, uncomplicated; Z86.73 Personal history of transient ischemic attack (TIA), and cerebral infarction without residual deficits

== ENCOUNTER 2019-08-12 08:59 | Emergency (ER) | payer OTHER ==
[~2019-08-12] VITALS: Wt 72.6 kg
[~2019-08-12 08:59] MED LIST changes: +CEPHALEXIN500 M1 PO; +VOLTAREN100 GM T
[2019-08-12 09:00] VITALS: BP 154/90
[2019-08-12] MEDS ORDERED: FLONASE ALLERG9.9 ML NAS (11:04)
[2019-08-12] MEDS ORDERED: ZOFRAN4 MG PO (11:04)
[2019-08-12] MEDS ORDERED: Motrin,Rufen800 MG PO (11:04)
[2019-08-12] MEDS ORDERED: ZYRTEC10 MG PO (11:04)
== END 2019-08-12 11:09 | disposition home or self-care (01) ==
LOC: ED 08:59
DX: B34.9 Viral infection, unspecified (principal); Z79.2 Long term (current) use of antibiotics; Z79.899 Other long term (current) drug therapy

== ENCOUNTER 2019-09-12 12:56 | Emergency (ER) | payer OTHER ==
[~2019-09-12] VITALS: Ht 160 cm; Wt 72.6 kg
[~2019-09-12 12:56] MED LIST changes: +FLONASE ALLERG9.9 ML NAS; +Motrin,Rufen800 MG PO; +ZYRTEC10 MG PO
[2019-09-12 13:00] VITALS: BP 148/88
[2019-09-12 14:18] LABS: BASO # 0.1 10*3/uL (0.0-0.1); BASO % 0.6 % (0.0-1.0); EOS # 0.1 10*3/uL (0.0-0.4); EOS % 0.6 % (1.0-4.0); HEMATOCRIT 46.8 % (42.0-52.0); HEMOGLOBIN 15.7 g/dl (14.0-18.0); LYMPH # 1.6 10*3/uL (1.3-4.4); LYMPH % 15.4 % (27.0-41.0); MEAN CELL VOLUME 88.8 fl (80.0-94.0); MEAN CORPUSCULAR HGB 29.8 pg (27.0-31.0); MEAN CORPUSCULAR HGB CONC 33.5 g/dl (33.0-37.0); MEAN PLATELET VOLUME 10.6 fl (9.6-12.3); MONO # 0.6 10*3/uL (0.1-1.0); MONO % 5.9 % (3.0-9.0); NEUT # 7.9 10*3/uL (2.3-7.9); NEUT % 77.2 % (47.0-73.0); PLATELET COUNT AUTOMATED 334 10*3/uL (130-400); RED BLOOD COUNT 5.27 10*6/uL (4.50-5.90); RED CELL DISTRI WIDTH 12.6 % (0-14.5); WHITE BLOOD COUNT 10.2 10*3/uL (4.8-10.8)
[2019-09-12 14:25] LABS: BILIRUBIN NEGATIVE (NEGATIVE); BLOOD NEGATIVE (NEGATIVE); CLARITY SL CLOUDY (CLEAR); COLOR YELLOW (YELLOW); GLUCOSE NEGATIVE (NEGATIVE); KETONE NEGATIVE (NEGATIVE); LEUKO ESTERASE NEGATIVE (NEGATIVE); NITRITE NEGATIVE (NEGATIVE); PH 7.5 (5.0-9.0); UROBILINOGEN 0.2 E.U./dl (0.2-1.0)
[2019-09-12 14:35] LABS: URINE AMPHETAMINES < 1000 (1000ng/ml); URINE BARBITURATES < 200 (200ng/ml); URINE BENZODIAZEPINES < 200 (200ng/ml); URINE CANNABINOIDS (THC) > 50 (50ng/ml); URINE COCAINE < 300 (300ng/ml); URINE METHADONE < 300 (300ng/ml); URINE OPIATES < 300 (300ng/ml)
[2019-09-12 14:38] LABS: URINE PHENCYCLIDINE < 25 (25ng/ml)
[2019-09-12 14:58] LABS: ALBUMIN 4.5 gm/dl (3.1-4.5); ALKALINE PHOSPHATASE 98 U/L (45-117); BUN 10 mg/dl (7-24); CHLORIDE 106 mmol/L (98-107); POTASSIUM 3.6 mmol/L (3.5-5.1); SGOT/AST 17 IU/L (3-35); SGPT/ALT 24 U/L (12-78); SODIUM 141 mmol/L (136-145); TOTAL PROTEIN 8.4 gm/dL (6.4-8.2)
[2019-09-12 15:04] LABS: ETHYL ALCOHOL < 3.0 mg/dl (<3)
== END 2019-09-12 23:37 | disposition home health service (06) ==
LOC: ED 12:56
PROVIDERS: Emergency Medicine
DX: F31.9 Bipolar disorder, unspecified (principal); K21.9 Gastro-esophageal reflux disease without esophagitis; I10 Essential (primary) hypertension

== ENCOUNTER 2019-10-19 16:07 | Emergency (ER) | payer OTHER ==
[~2019-10-19] VITALS: Ht 160 cm; Wt 72.6 kg
[2019-10-19 16:10] VITALS: BP 141/80
[2019-10-19] MEDS ORDERED: IBUPROFEN600 MG PO (17:27)
== END 2019-10-19 17:32 | disposition home or self-care (01) ==
LOC: ED 16:07
DX: M79.671 Pain in right foot (principal); F41.9 Anxiety disorder, unspecified; F32.9 Major depressive disorder, single episode, unspecified; Z79.899 Other long term (current) drug therapy; Z79.2 Long term (current) use of antibiotics

== ENCOUNTER 2019-12-01 17:20 | Emergency (ER) | payer OTHER ==
[~2019-12-01] VITALS: Wt 76.0 kg
[2019-12-01 17:20] VITALS: BP 201/115
[~2019-12-01 17:20] MED LIST changes: +IBUPROFEN600 MG PO
== END 2019-12-01 22:32 | disposition short-term general hospital (02) ==
LOC: ED 17:20
DX: T23.301A Burn of third degree of right hand, unspecified site, initial encounter (principal); T20.27XA Burn of second degree of neck, initial encounter; T20.20XA Burn of second degree of head, face, and neck, unspecified site, initial encounter; T22.10XA Burn of first degree of shoulder and upper limb, except wrist and hand, unspecified site, initial encounter; K21.9 Gastro-esophageal reflux disease without esophagitis; I10 Essential (primary) hypertension; R00.0 Tachycardia, unspecified; Z79.899 Other long term (current) drug therapy; Z79.2 Long term (current) use of antibiotics; Z98.890 Other specified postprocedural states; X12.XXXA Contact with other hot fluids, initial encounter; Y93.89 Activity, other specified; Y92.89 Other specified places as the place of occurrence of the external cause; Y99.8 Other external cause status

== ENCOUNTER 2020-01-07 15:49 | Emergency (ER) | payer OTHER ==
[~2020-01-07] VITALS: Ht 160 cm; Wt 63.5 kg
[2020-01-07 15:56] VITALS: BP 125/81
== END 2020-01-07 17:21 | disposition home or self-care (01) ==
LOC: ED 15:49
DX: T23.101D Burn of first degree of right hand, unspecified site, subsequent encounter (principal); Z48.00 Encounter for change or removal of nonsurgical wound dressing; Z79.899 Other long term (current) drug therapy; X58.XXXD Exposure to other specified factors, subsequent encounter

== ENCOUNTER 2020-01-09 16:55 | Emergency (ER) | payer OTHER ==
[~2020-01-09] VITALS: Ht 160 cm; Wt 63.5 kg
[2020-01-09 19:42] VITALS: BP 127/71
== END 2020-01-09 21:01 | disposition home or self-care (01) ==
LOC: ED 16:55
DX: T23.101D Burn of first degree of right hand, unspecified site, subsequent encounter (principal); Z48.00 Encounter for change or removal of nonsurgical wound dressing; F41.9 Anxiety disorder, unspecified; F32.9 Major depressive disorder, single episode, unspecified; Z79.899 Other long term (current) drug therapy; X58.XXXD Exposure to other specified factors, subsequent encounter

== ENCOUNTER 2020-01-11 16:16 | Emergency (ER) | payer OTHER ==
[~2020-01-11] VITALS: Ht 160 cm; Wt 63.5 kg
[2020-01-11 16:24] VITALS: BP 153/86
== END 2020-01-11 17:17 | disposition home or self-care (01) ==
LOC: ED 16:16
DX: T23.101A Burn of first degree of right hand, unspecified site, initial encounter (principal); Z48.00 Encounter for change or removal of nonsurgical wound dressing; F41.9 Anxiety disorder, unspecified; F32.9 Major depressive disorder, single episode, unspecified; Z79.899 Other long term (current) drug therapy; Z79.2 Long term (current) use of antibiotics; X58.XXXA Exposure to other specified factors, initial encounter; Y93.89 Activity, other specified; Y92.89 Other specified places as the place of occurrence of the external cause; Y99.8 Other external cause status

== ENCOUNTER 2020-01-20 07:14 | Emergency (ER) | payer OTHER ==
[~2020-01-20] VITALS: Ht 160 cm; Wt 63.5 kg
[2020-01-20 07:25] VITALS: BP 131/69
== END 2020-01-20 08:00 | disposition home or self-care (01) ==
LOC: ED 07:14
DX: T23.301D Burn of third degree of right hand, unspecified site, subsequent encounter (principal); Z48.00 Encounter for change or removal of nonsurgical wound dressing; K21.9 Gastro-esophageal reflux disease without esophagitis; F31.9 Bipolar disorder, unspecified; I10 Essential (primary) hypertension; F41.9 Anxiety disorder, unspecified; Z79.899 Other long term (current) drug therapy; Z79.2 Long term (current) use of antibiotics; X08.8XXD Exposure to other specified smoke, fire and flames, subsequent encounter

== ENCOUNTER 2020-02-10 17:33 | Emergency (ER) | payer OTHER ==
[~2020-02-10] VITALS: Ht 160 cm; Wt 63.5 kg
[2020-02-10 17:39] VITALS: BP 120/67
[2020-02-10 18:48] LABS: BASO # 0.1 10*3/uL (0.0-0.1); BASO % 0.8 % (0.0-1.0); EOS # 0.2 10*3/uL (0.0-0.4); EOS % 2.6 % (1.0-4.0); HEMATOCRIT 36.7 % (42.0-52.0); LYMPH # 1.6 10*3/uL (1.3-4.4); LYMPH % 23.6 % (27.0-41.0); MEAN CELL VOLUME 91.8 fl (80.0-94.0); MEAN CORPUSCULAR HGB 30.5 pg (27.0-31.0); MEAN CORPUSCULAR HGB CONC 33.2 g/dl (33.0-37.0); MEAN PLATELET VOLUME 10.7 fl (9.6-12.3); MONO # 0.6 10*3/uL (0.1-1.0); MONO % 9.2 % (3.0-9.0); NEUT # 4.2 10*3/uL (2.3-7.9); NEUT % 63.5 % (47.0-73.0); PLATELET COUNT AUTOMATED 242 10*3/uL (130-400); RED CELL DISTRI WIDTH 13.1 % (0-14.5); WHITE BLOOD COUNT 6.6 10*3/uL (4.8-10.8)
[2020-02-10 18:57] LABS: ACT PARTIAL THROMBO TIME 29.3 SECONDS (20.0-32.1)
[2020-02-10 19:02] LABS: ALBUMIN 3.4 gm/dl (3.1-4.5); ALKALINE PHOSPHATASE 104 U/L (45-117); BUN 10 mg/dl (7-24); CHLORIDE 112 mmol/L (98-107); LIPASE 102 U/L (73-393); POTASSIUM 3.8 mmol/L (3.5-5.1); SGOT/AST 22 IU/L (3-35); SGPT/ALT 40 U/L (12-78); SODIUM 140 mmol/L (136-145); TOTAL PROTEIN 6.5 gm/dL (6.4-8.2)
[2020-02-10 19:07] LABS: TROPONIN I < 0.015 ng/ml (<0.045)
[2020-02-10] MEDS ORDERED: TRAMADOL HCL50 MG PO (23:17)
[2020-02-10] MEDS ORDERED: SEPTDS PO (23:17)
== END 2020-02-10 23:41 | disposition home or self-care (01) ==
LOC: ED 17:33
PROVIDERS: Emergency Medicine
DX: L03.113 Cellulitis of right upper limb (principal); T23.001D Burn of unspecified degree of right hand, unspecified site, subsequent encounter; Z79.899 Other long term (current) drug therapy; X08.8XXD Exposure to other specified smoke, fire and flames, subsequent encounter

== ENCOUNTER 2020-07-20 16:54 | Emergency (ER) | payer OTHER ==
[~2020-07-20] VITALS: Ht 160 cm; Wt 72.6 kg
[2020-07-20 17:02] VITALS: BP 160/90
[2020-07-20 17:47] LABS: BILIRUBIN Negative (Negative); BLOOD Negative (Negative); CLARITY Clear (Clear); COLOR Yellow (Yellow); GLUCOSE Negative (Negative); KETONE Negative (Negative); LEUKO ESTERASE Negative (Negative); NITRITE Negative (Negative); UROBILINOGEN 0.2 E.U./dl (0.0-1.0)
[2020-07-20 17:53] LABS: RBC 0-2 rbc/hpf (0-2)
[2020-07-20 17:54] LABS: BACTERIA TRACE; WBC 0-2 wbc/hpf (0-5)
[2020-07-20] MEDS ORDERED: VALTREX1000 MG PO (17:59)
[2020-07-20] MEDS ORDERED: KEFLEX500 M1 PO (17:59)
== END 2020-07-20 18:15 | disposition home or self-care (01) ==
LOC: ED 16:54
PROVIDERS: Nurse Practitioner
DX: A60.01 Herpesviral infection of penis (principal); K65.1 Peritoneal abscess; Z79.899 Other long term (current) drug therapy

== ENCOUNTER 2021-04-22 13:09 | Inpatient (IN) | payer OTHER ==
[~2021-04-22] VITALS: Ht 160 cm; Wt 65.8 kg
[2021-04-22] VITALS (8 sets, daily range): BP systolic 146–191; BP diastolic 61–100
[~2021-04-22 13:09] MED LIST changes: +VALTREX1000 MG PO
[2021-04-22 13:38] LABS: BASO # 0.1 10*3/uL (0.0-0.1); BASO % 0.5 % (0.0-1.0); EOS # 0.2 10*3/uL (0.0-0.4); EOS % 2.1 % (1.0-4.0); HEMATOCRIT 44.4 % (42.0-52.0); LYMPH # 1.7 10*3/uL (1.3-4.4); LYMPH % 18.8 % (27.0-41.0); MEAN CELL VOLUME 86.9 fl (80.0-94.0); MEAN CORPUSCULAR HGB 29.9 pg (27.0-31.0); MEAN CORPUSCULAR HGB CONC 34.5 g/dl (33.0-37.0); MONO # 0.6 10*3/uL (0.1-1.0); MONO % 6.2 % (3.0-9.0); NEUT # 6.6 10*3/uL (2.3-7.9); NEUT % 72.1 % (47.0-73.0); PLATELET COUNT AUTOMATED 289 10*3/uL (130-400); RED BLOOD COUNT 5.11 10*6/uL (4.50-5.90); RED CELL DISTRI WIDTH 12.4 % (0-14.5); WHITE BLOOD COUNT 9.2 10*3/uL (4.8-10.8)
[2021-04-22 13:56] LABS: ALKALINE PHOSPHATASE 89 U/L (45-117); BUN 10 mg/dl (7-24); CHLORIDE 109 mmol/L (98-107); CREATININE 0.87 mg/dL (0.70-1.30); POTASSIUM 3.8 mmol/L (3.5-5.1); SGOT/AST 18 IU/L (3-35); SGPT/ALT 35 U/L (12-78); SODIUM 138 mmol/L (136-145); TOTAL PROTEIN 7.7 gm/dL (6.4-8.2)
[2021-04-22 13:59] LABS: TROPONIN I < 0.015 ng/ml (<0.045)
[2021-04-23] VITALS: BP 124/71
[2021-04-23 06:45] LABS: BASO # 0.1 10*3/uL (0.0-0.1); BASO % 0.6 % (0.0-1.0); EOS # 0.2 10*3/uL (0.0-0.4); EOS % 2.5 % (1.0-4.0); HEMATOCRIT 47.2 % (42.0-52.0); LYMPH # 1.4 10*3/uL (1.3-4.4); LYMPH % 16.2 % (27.0-41.0); MEAN CELL VOLUME 88.9 fl (80.0-94.0); MEAN CORPUSCULAR HGB 29.6 pg (27.0-31.0); MEAN CORPUSCULAR HGB CONC 33.3 g/dl (33.0-37.0); MEAN PLATELET VOLUME 10.7 fl (9.6-12.3); MONO # 0.7 10*3/uL (0.1-1.0); MONO % 7.9 % (3.0-9.0); NEUT # 6.1 10*3/uL (2.3-7.9); NEUT % 72.3 % (47.0-73.0); PLATELET COUNT AUTOMATED 269 10*3/uL (130-400); RED BLOOD COUNT 5.31 10*6/uL (4.50-5.90); RED CELL DISTRI WIDTH 12.7 % (0-14.5); WHITE BLOOD COUNT 8.4 10*3/uL (4.8-10.8)
[2021-04-23 07:04] LABS: ALBUMIN 3.8 gm/dl (3.1-4.5); BUN 13 mg/dl (7-24); CHLORIDE 108 mmol/L (98-107); CHOLESTEROL 250 mg/dL (<200); CREATININE 0.99 mg/dL (0.70-1.30); POTASSIUM 4.3 mmol/L (3.5-5.1); SGOT/AST 21 IU/L (3-35); SGPT/ALT 33 U/L (12-78); SODIUM 138 mmol/L (136-145); TOTAL PROTEIN 7.7 gm/dL (6.4-8.2); TRIGLYCERIDES 141 mg/dl (<150)
[2021-04-23 07:10] LABS: ALKALINE PHOSPHATASE 85 U/L (45-117); FREE T4 0.95 ng/dl (0.76-1.46); LDL CHOLESTEROL 184 mg/dL (9-159)
[2021-04-23 08:00] VITALS: BP 135/90
[2021-04-23 12:00] VITALS: BP 153/81
[2021-04-23] MEDS ORDERED: ASPIRIN ADULT L81 M2 PO (14:20)
[2021-04-23] MEDS ORDERED: LISINOPRIL10 M1 PO (14:20)
== END 2021-04-23 15:53 | disposition home or self-care (01) | DRG 203 ==
LOC: ED 13:09 → EDHOLD 15:32 → 4E 15:32
PROVIDERS: Emergency Medicine; Internal Medicine; ADMIT Student in an Organized Health Care Education/Training Program; ATTEND Student in an Organized Health Care Education/Training Program
PROC: 4A02XM4 Measurement of Cardiac Total Activity, External Approach (ICD-10-PCS; principal; 2021-04-23)
PROC: 3E073KZ Introduction of Other Diagnostic Substance into Coronary Artery, Percutaneous Approach (ICD-10-PCS; 2021-04-23)
DX: R07.89 Other chest pain (principal); I16.0 Hypertensive urgency; E83.41 Hypermagnesemia; F31.9 Bipolar disorder, unspecified; K21.9 Gastro-esophageal reflux disease without esophagitis; F12.10 Cannabis abuse, uncomplicated; R00.1 Bradycardia, unspecified; E87.8 Other disorders of electrolyte and fluid balance, not elsewhere classified; E11.9 Type 2 diabetes mellitus without complications; I10 Essential (primary) hypertension; E66.3 Overweight; Z68.25 Body mass index [BMI] 25.0-25.9, adult; Z86.73 Personal history of transient ischemic attack (TIA), and cerebral infarction without residual deficits; Z82.49 Family history of ischemic heart disease and other diseases of the circulatory system

== ENCOUNTER → 2021-05-19 | Outpatient (CLI) | payer OTHER ==
[~2021-05-19] MED LIST changes: +ASPIRIN ADULT L81 M2 PO
== END | disposition home or self-care (01) ==
LOC: RESCLI 06:57
PROVIDERS: ATTEND Internal Medicine Nephrology
DX: K21.9 Gastro-esophageal reflux disease without esophagitis (principal); I10 Essential (primary) hypertension; H91.90 Unspecified hearing loss, unspecified ear; R10.9 Unspecified abdominal pain; F41.8 Other specified anxiety disorders; E78.5 Hyperlipidemia, unspecified; Z79.82 Long term (current) use of aspirin; Z79.899 Other long term (current) drug therapy

== ENCOUNTER 2021-10-11 08:01 | Emergency (ER) | payer OTHER ==
[~2021-10-11] VITALS: Ht 160 cm; Wt 72.6 kg
[2021-10-11 08:52] VITALS: BP 149/82
[2021-10-11 10:03] LABS: BASO # 0.1 10*3/uL (0.0-0.1); BASO % 0.7 % (0.0-1.0); EOS # 0.1 10*3/uL (0.0-0.4); EOS % 1.7 % (1.0-4.0); HEMATOCRIT 42.2 % (42.0-52.0); LYMPH # 1.6 10*3/uL (1.3-4.4); LYMPH % 20.9 % (27.0-41.0); MEAN CELL VOLUME 88.1 fl (80.0-94.0); MEAN CORPUSCULAR HGB 30.3 pg (27.0-31.0); MEAN CORPUSCULAR HGB CONC 34.4 g/dl (33.0-37.0); MEAN PLATELET VOLUME 10.6 fl (9.6-12.3); MONO # 0.7 10*3/uL (0.1-1.0); MONO % 8.6 % (3.0-9.0); NEUT # 5.1 10*3/uL (2.3-7.9); NEUT % 67.7 % (47.0-73.0); PLATELET COUNT AUTOMATED 271 10*3/uL (130-400); RED BLOOD COUNT 4.79 10*6/uL (4.50-5.90); RED CELL DISTRI WIDTH 12.2 % (0-14.5); WHITE BLOOD COUNT 7.5 10*3/uL (4.8-10.8)
[2021-10-11 10:25] LABS: ALBUMIN 3.7 gm/dl (3.1-4.5); BUN 13 mg/dl (7-24); CHLORIDE 111 mmol/L (98-107); CREATININE 0.91 mg/dL (0.70-1.30); LIPASE 140 U/L (73-393); POTASSIUM 4.5 mmol/L (3.5-5.1); SODIUM 140 mmol/L (136-145)
[2021-10-11 10:37] LABS: ALKALINE PHOSPHATASE 67 U/L (45-117); SGOT/AST 21 IU/L (3-35); SGPT/ALT 30 U/L (12-78); TOTAL PROTEIN 7.5 gm/dL (6.4-8.2)
[2021-10-11] MEDS ORDERED: ZESTRIL10 MG PO (13:45)
== END 2021-10-11 13:50 | disposition home or self-care (01) ==
LOC: ED 08:01
PROVIDERS: Emergency Medicine
DX: R11.0 Nausea (principal); Z20.822 Contact with and (suspected) exposure to COVID-19; R19.7 Diarrhea, unspecified; Z76.0 Encounter for issue of repeat prescription

== ENCOUNTER 2021-10-15 08:23 | Emergency (ER) | payer OTHER ==
[~2021-10-15] VITALS: Ht 160 cm; Wt 72.6 kg
[~2021-10-15 08:23] MED LIST changes: +ZESTRIL10 MG PO
[2021-10-15 08:27] VITALS: BP 148/70
[2021-10-15] MEDS ORDERED: ZOFRAN4 MG PO (09:01)
== END 2021-10-15 09:16 | disposition home or self-care (01) ==
LOC: ED 08:23
DX: K52.9 Noninfective gastroenteritis and colitis, unspecified (principal)

== ENCOUNTER 2022-07-27 09:43 | Emergency (ER) | payer OTHER ==
[~2022-07-27] VITALS: Ht 160 cm; Wt 72.6 kg
[2022-07-27 09:53] VITALS: BP 168/91
[2022-07-27 10:08] LABS: BILIRUBIN Negative (Negative); BLOOD Negative (Negative); CLARITY Turbid (Clear); COLOR Yellow (Yellow); GLUCOSE Negative (Negative); KETONE Negative (Negative); LEUKO ESTERASE Negative (Negative); NITRITE Negative (Negative); PH 7.5 (4.5-8.0); UROBILINOGEN 0.2 E.U./dl (0.0-1.0)
[2022-07-27 10:31] LABS: BASO # 0.1 10*3/uL (0.0-0.1); BASO % 0.7 % (0.0-1.0); EOS # 0.1 10*3/uL (0.0-0.4); EOS % 0.8 % (1.0-4.0); HEMATOCRIT 45.6 % (42.0-52.0); LYMPH # 1.5 10*3/uL (1.3-4.4); LYMPH % 14.3 % (27.0-41.0); MEAN CELL VOLUME 86.2 fl (80.0-94.0); MEAN CORPUSCULAR HGB 30.8 pg (27.0-31.0); MEAN CORPUSCULAR HGB CONC 35.7 g/dl (33.0-37.0); MEAN PLATELET VOLUME 10.1 fl (9.6-12.3); MONO # 0.7 10*3/uL (0.1-1.0); MONO % 6.9 % (3.0-9.0); NEUT # 8.2 10*3/uL (2.3-7.9); NEUT % 76.8 % (47.0-73.0); PLATELET COUNT AUTOMATED 286 10*3/uL (130-400); RED BLOOD COUNT 5.29 10*6/uL (4.50-5.90); RED CELL DISTRI WIDTH 12.2 % (0-14.5); WHITE BLOOD COUNT 10.7 10*3/uL (4.8-10.8)
[2022-07-27 10:32] LABS: BACTERIA 3+; WBC 0-2 wbc/hpf (0-5)
[2022-07-27 10:42] LABS: ACT PARTIAL THROMBO TIME 32.2 SECONDS (20.0-32.1)
[2022-07-27 10:47] LABS: ALKALINE PHOSPHATASE 87 U/L (45-117); BUN 14 mg/dl (7-24); CHLORIDE 103 mmol/L (98-107); CREATININE 0.98 mg/dL (0.70-1.30); POTASSIUM 3.8 mmol/L (3.5-5.1); SGPT/ALT 42 U/L (12-78); SODIUM 136 mmol/L (136-145)
[2022-07-27] MEDS ORDERED: CIPRO500 MG PO (12:32)
== END 2022-07-27 12:42 | disposition home or self-care (01) ==
LOC: ED 09:43
PROVIDERS: Emergency Medicine
DX: R30.0 Dysuria (principal); R39.11 Hesitancy of micturition

== ENCOUNTER 2022-08-04 08:14 | Emergency (ER) | payer OTHER ==
[~2022-08-04] VITALS: Ht 160 cm; Wt 72.6 kg
[2022-08-04 08:25] VITALS: BP 165/87
[2022-08-04 09:36] LABS: BASO # 0.1 10*3/uL (0.0-0.1); BASO % 0.7 % (0.0-1.0); EOS # 0.1 10*3/uL (0.0-0.4); EOS % 1.2 % (1.0-4.0); HEMATOCRIT 42.9 % (42.0-52.0); LYMPH # 1.4 10*3/uL (1.3-4.4); LYMPH % 18.8 % (27.0-41.0); MEAN CORPUSCULAR HGB 30.3 pg (27.0-31.0); MEAN CORPUSCULAR HGB CONC 35.2 g/dl (33.0-37.0); MEAN PLATELET VOLUME 9.8 fl (9.6-12.3); MONO # 0.6 10*3/uL (0.1-1.0); MONO % 8.7 % (3.0-9.0); NEUT # 5.2 10*3/uL (2.3-7.9); NEUT % 70.1 % (47.0-73.0); PLATELET COUNT AUTOMATED 275 10*3/uL (130-400); RED BLOOD COUNT 4.99 10*6/uL (4.50-5.90); RED CELL DISTRI WIDTH 12.2 % (0-14.5); WHITE BLOOD COUNT 7.4 10*3/uL (4.8-10.8)
[2022-08-04 09:57] LABS: ACT PARTIAL THROMBO TIME 31.6 SECONDS (20.0-32.1)
[2022-08-04 10:01] LABS: ALKALINE PHOSPHATASE 71 U/L (46-116); BUN 10 mg/dl (9-23); CHLORIDE 108 mmol/L (98-107); CREATININE 0.86 mg/dL (0.70-1.30); POTASSIUM 3.7 mmol/L (3.4-5.1); SGPT/ALT 25 U/L (10-49); SODIUM 138 mmol/L (136-145); TOTAL PROTEIN 7.1 gm/dL (6.0-8.0)
== END 2022-08-04 10:21 | disposition home or self-care (01) ==
LOC: ED 08:14
PROVIDERS: Emergency Medicine
DX: K62.5 Hemorrhage of anus and rectum (principal); K21.9 Gastro-esophageal reflux disease without esophagitis; I10 Essential (primary) hypertension

== ENCOUNTER 2022-08-19 16:52 | Emergency (ER) | payer OTHER ==
[~2022-08-19] VITALS: Wt 63.5 kg
[2022-08-19 17:06] VITALS: BP 159/82
[2022-08-19 18:06] LABS: BILIRUBIN Negative (Negative); BLOOD Negative (Negative); CLARITY Clear (Clear); COLOR Yellow (Yellow); GLUCOSE Negative (Negative); KETONE Negative (Negative); LEUKO ESTERASE Negative (Negative); NITRITE Negative (Negative); SPECIFIC GRAVITY >= 1.030 (1.001-1.030)
[2022-08-19 18:11] LABS: BASO # 0.1 10*3/uL (0.0-0.1); BASO % 0.9 % (0.0-1.0); EOS % 0.7 % (1.0-4.0); HEMATOCRIT 44.8 % (42.0-52.0); LYMPH # 0.8 10*3/uL (1.3-4.4); LYMPH % 14.5 % (27.0-41.0); MEAN CELL VOLUME 86.8 fl (80.0-94.0); MEAN CORPUSCULAR HGB 30.6 pg (27.0-31.0); MEAN CORPUSCULAR HGB CONC 35.3 g/dl (33.0-37.0); MEAN PLATELET VOLUME 10.2 fl (9.6-12.3); MONO % 16.9 % (3.0-9.0); NEUT # 3.8 10*3/uL (2.3-7.9); NEUT % 66.5 % (47.0-73.0); PLATELET COUNT AUTOMATED 211 10*3/uL (130-400); RED BLOOD COUNT 5.16 10*6/uL (4.50-5.90); RED CELL DISTRI WIDTH 12.4 % (0-14.5); WHITE BLOOD COUNT 5.7 10*3/uL (4.8-10.8)
[2022-08-19 18:26] LABS: ALKALINE PHOSPHATASE 83 U/L (46-116); BUN 17 mg/dl (9-23); CHLORIDE 104 mmol/L (98-107); CREATININE 0.88 mg/dL (0.70-1.30); POTASSIUM 3.8 mmol/L (3.4-5.1); SGPT/ALT 44 U/L (10-49); SODIUM 137 mmol/L (136-145); TOTAL PROTEIN 7.7 gm/dL (6.0-8.0)
[2022-08-19 18:39] LABS: BACTERIA TRACE; MUCOUS TRACE; RBC 0-2 rbc/hpf (0-2); WBC 0-2 wbc/hpf (0-5)
[2022-08-19] MEDS ORDERED: PYRIDIUM200 M1 PO (18:46)
== END 2022-08-19 18:47 | disposition home or self-care (01) ==
LOC: ED 16:52
PROVIDERS: Physician Assistant
DX: R39.15 Urgency of urination (principal); F12.10 Cannabis abuse, uncomplicated; F10.90 Alcohol use, unspecified, uncomplicated; Z98.890 Other specified postprocedural states

== ENCOUNTER → 2022-09-29 | Day surgery (SDC) | payer OTHER ==
[~2022-09-29] VITALS: Ht 160 cm; Wt 64.9 kg
[~2022-09-29] MED LIST changes: +AMLODIPINE BESYL5 MG PO; +FLOMAX0.4 MG PO; +PYRIDIUM200 M1 PO
[2022-09-29 11:28] VITALS: BP 124/76
[2022-09-29 12:31] VITALS: BP 135/87
[2022-09-29 12:46] VITALS: BP 137/81
[2022-09-29 13:01] VITALS: BP 147/76
== END | disposition home or self-care (01) ==
LOC: SDC 09:27
PROVIDERS: ATTEND Surgery
DX: K62.5 Hemorrhage of anus and rectum (principal); K63.5 Polyp of colon; K57.30 Diverticulosis of large intestine without perforation or abscess without bleeding; K29.50 Unspecified chronic gastritis without bleeding; K21.9 Gastro-esophageal reflux disease without esophagitis; I10 Essential (primary) hypertension; F31.9 Bipolar disorder, unspecified; I25.2 Old myocardial infarction; E11.9 Type 2 diabetes mellitus without complications; F41.9 Anxiety disorder, unspecified; Z86.73 Personal history of transient ischemic attack (TIA), and cerebral infarction without residual deficits; Z79.899 Other long term (current) drug therapy; Z98.890 Other specified postprocedural states

== ENCOUNTER 2024-04-28 08:34 | Emergency (ER) | payer OTHER ==
[~2024-04-28] VITALS: Ht 172.7 cm; Wt 72.6 kg
[2024-04-28 08:41] VITALS: BP 178/90
[2024-04-28] MEDS ORDERED: OXYBUTYNIN5 MG PO (08:44)
[2024-04-28] MEDS ORDERED: PANTOPRAZOLE SO40 MG PO (08:45)
[2024-04-28 09:33] LABS: BASO % 0.6 % (0.0-1.0); EOS # 0.1 10*3/uL (0.0-0.4); HEMATOCRIT 42.4 % (42.0-52.0); LYMPH # 1.3 10*3/uL (1.3-4.4); LYMPH % 19.9 % (27.0-41.0); MEAN CORPUSCULAR HGB 30.5 pg (27.0-31.0); MEAN CORPUSCULAR HGB CONC 34.7 g/dl (33.0-37.0); MEAN PLATELET VOLUME 10.2 fl (9.6-12.3); MONO # 0.5 10*3/uL (0.1-1.0); MONO % 8.1 % (3.0-9.0); NEUT # 4.5 10*3/uL (2.3-7.9); NEUT % 69.2 % (47.0-73.0); PLATELET COUNT AUTOMATED 246 10*3/uL (130-400); RED BLOOD COUNT 4.82 10*6/uL (4.50-5.90); RED CELL DISTRI WIDTH 12.1 % (0-14.5); WHITE BLOOD COUNT 6.5 10*3/uL (4.8-10.8)
[2024-04-28 09:59] LABS: ALKALINE PHOSPHATASE 79 U/L (46-116); BUN 12 mg/dl (9-23); CHLORIDE 107 mmol/L (98-107); LIPASE 34 U/L (12-53); SGPT/ALT 14 U/L (5-49); TOTAL PROTEIN 7.5 gm/dL (6.0-8.0)
[2024-04-28] MEDS ORDERED: Ketorolac Tromethamine 15 MG/ML VIAL IV ONE (10:55)
== END 2024-04-28 12:36 | disposition left against medical advice (07) ==
LOC: ED 08:34
PROVIDERS: Internal Medicine
DX: N13.2 Hydronephrosis with renal and ureteral calculous obstruction (principal); R11.0 Nausea; F41.9 Anxiety disorder, unspecified; F31.9 Bipolar disorder, unspecified; F12.10 Cannabis abuse, uncomplicated; Z98.890 Other specified postprocedural states; Z53.29 Procedure and treatment not carried out because of patient's decision for other reasons